=== PATIENT | female | born 1955 | race Caucasian/White ===

== ENCOUNTER 2018-06-25 17:38 | Emergency (ER) | payer MEDICARE, OTHER ==
[2018-06-25 18:39] VITALS: BP 157/102
--- NOTE | 2018-06-25 21:02 | UC ---
Abdominal Pain Female HPI - HPI Summary HPI Summary: 2-3 days of lower abdominal pain. Denies fever, nausea/vomiting. No diarrhea/ constipation. Normal BM today. No urinary symptoms. Appetite is decreased. Patient states she hasn't had much but water over the past 2 days. Currently is pain-free but states it gets worse when she stretches out and lays flat. Patient is morbidly obese and uses a motorized scooter for mobility. - History of Current Complaint Chief Complaint: UCAbdominalPain Stated Complaint: ABDOMINAL PAIN Time Seen by Provider: 06/25/18 19:14 Hx Obtained From: Patient Onset/Duration: Sudden Onset, Lasting Days, Still Present Severity Initially: Moderate Severity Currently: None Pain Intensity: 0 Pain Scale Used: 0-10 Numeric Location: Suprapubic Radiates: No Character: Aching, Sharp Aggravating Factor(s): Other: - LAYING FLAT Alleviating Factor(s): Spontaneous Resolution Associated Signs and Symptoms: Positive: Decreased Appetite. Negative: Diaphoresis, Fever, Constipation, Blood in Stool, Urinary Symptoms, Nausea, Vomiting, Diarrhea Allergies/Adverse Reactions: Allergies Allergy/AdvReac Type Severity Reaction Status Date / Time No Known Allergies Allergy Verified 06/25/18 18:40 Home Medications: Home Medications ?Indomethacin* 1 tab PO DAILY 06/25/18 [History Confirmed 06/25/18] Ibuprofen TAB* [Advil TAB*] 600 mg PO ONCE PRN 06/25/18 [History Confirmed 06/25] PMH/Surg Hx/FS Hx/Imm Hx - Additional Past Medical History Additional PMH: GOUT Cardiovascular History: Hypertension - Surgical History Surgical History: Yes Surgery Procedure, Year, and Place: RIGHT KNEE - CARTILAGE TORN AND REMOVED-2001 -[place]. [id number] - Family History Known Family History: Positive: Non-Contributory - Social History Alcohol Use: None Substance Use Type: None Smoking Status (MU): Never Smoked Tobacco Amount Used/How Often: 1 1/2 PPD X 10 YEARS Have You Smoked in the Last Year: No When Did the Patient Quit Smoking/Using Tobacco: 1982 Review of Systems All Other Systems Reviewed And Are Negative: Yes Constitutional: Positive: Negative Respiratory: Positive: Negative Cardiovascular: Positive: Negative Gastrointestinal: Positive: Abdominal Pain Genitourinary: Positive: Negative Physical Exam Triage Information Reviewed: Yes Appearance: Well-Appearing, No Pain Distress, Well-Nourished, Obese Vital Signs: Initial Vital Signs Temp 97.7 F 06/25/18 18:32 Pulse 80 06/25/18 18:32 Resp 20 06/25/18 18:32 BP 157/102 06/25/18 18:32 Pulse Ox 97 06/25/18 18:32 Laboratory Tests 06/25/18 19:44 POC Urine Color Yellow POC Urine Clarity Clear POC Urine pH 6.0 POC Ur Specif [place] 1.025 POC Urine Protein 1+ A POC Ur Glucose (UA) Negative POC Urine Ketones Trace A POC Urine Blood Negative POC Urine Nitrite Negative POC Urine Bilirubin 1+ A POC Urine Urobilinogen 0.2 POC U Leukocyte Esteras Negative Vital Signs Reviewed: Yes Eyes: Positive: Conjunctiva Clear ENT: Positive: Hearing grossly normal Neck: Positive: Supple Respiratory Exam: Normal Cardiovascular Exam: Normal Abdomen Description: Positive: Soft, Other: - TTP SUPRAPUBIC AREA. NO REBOUND OR RIGIDITY. Negative: CVA Tenderness (R), CVA Tenderness (L), Distended, Guarding Bowel Sounds: Positive: Present Neurological: Positive: Alert Psychological: Positive: Normal Response To Family, Age Appropriate Behavior Skin: Negative: Rashes Abd Pain Female Course/Dx - Course Course Of Treatment: Urine test unremarkable. Discussed transfer to ED for further evaluation of abdominal pain however given that she is currently pain- free and hasn't had any other symptoms of systemic illness she has opted for careful observation at home. She will go to the ED if she develops any worsening pain, fever, vomiting, diarrhea, blood per rectum or any other concerning symptoms. - Differential Dx/Diagnosis Provider Diagnosis: Suprapubic abdominal pain Discharge - Sign-Out/Discharge Documenting (check all that apply): Patient Departure All imaging exams completed and their final reports reviewed: No Studies - Discharge Plan Condition: Stable Disposition: HOME Patient Education Materials: Abdominal Pain (ED) Referrals: Miri Lopes MD [Primary Care Provider] - 1 Week Additional Instructions: ABDOMINAL PAIN: There are many causes of abdominal pain. Pain can mean a serious problem requiring surgery (such as appendicitis), or an innocent problem which goes away on its own (such as a viral infection). Often, time must pass to determine the cause of pain. The physician does not feel that hospitalization is necessary, at present. Conditions may change, however, within the next 24 hours. GO TO THE ER WITHOUT FAIL IF ANY OF THE FOLLOWING OCCUR: 1) Pain which becomes more severe, steady, or becomes concentrated in one specific area. Also, pain which is more severe with movement or coughing. 2) Vomiting which persists or becomes more frequent. 3) Blood in the vomitus, urine, or bowel movements. Blood in the stool may have a tarry or black appearance. 4) Shaking chills or fever greater than 100 degrees F. 5) The abdomen becomes more distended or swollen. 6) Bowel movements cease. 7) Failure to improve as expected. OBSERVATION FOR APPENDICITIS: At this time, the abdominal pain does not seem to be appendicitis. Our next "test" will be passage of time. If you have early appendicitis, signs will appear to help us make the diagnosis. Most of the time, the pain goes away. In these cases, the pain is usually due to a virus in the lymph glands near the appendix, or due to an ovarian cyst or ovulation. Unless the pain is gone, you should come back for a recheck. This is usually done in 8 to 12 hours. Be sure you understand your follow-up instructions. GO TO THE ER IMMEDIATELY IF: (1) the pain becomes much more severe and sharply increases with movement or coughing, (2) vomiting becomes frequent, (3) there is blood in the vomit, urine, or bowel movements, (4) there are shaking chills or fever, or (5) the abdomen becomes more distended or swollen. ENSURE ADEQUATE HYDRATION. CLEAR LIQUIDS, BLAND DIET. AVOID CAFFEINE, DAIRY, GREASY, SPICY FOODS. ONCE YOU ARE TOLERATING CLEAR LIQUIDS YOU CAN ADVANCE TO SIMPLE, BLAND FOODS. - Billing Disposition and Condition Condition: STABLE Disposition: Home
== END 2018-06-25 20:30 | disposition home or self-care (01) ==
LOC: UCEAST 17:38
DX: R10.30 Lower abdominal pain, unspecified (principal); Z87.891 Personal history of nicotine dependence
CPT/HCPCS: 81003; 99211; G0463

== ENCOUNTER 2018-07-03 18:26 | Emergency (ER) | payer MEDICARE, OTHER ==
[2018-07-03] MEDS ORDERED: Ondansetron INJ* 2 MG/ML VIAL IV ONE (20:26)
[2018-07-03] MEDS ORDERED: HYDROmorphone INJ1* 1 MG/ML SYRINGE IV SLOW PU ONE (20:26)
[2018-07-03] MEDS ORDERED: Piperacillin/Tazobac ADVAN(*) 3.375 GM in NS 0.9% 100 ML* 100 ML IVPB ONE (20:26)
--- NOTE | 2018-07-03 20:30 | ED ---
Abdominal Pain/Female - HPI Summary HPI Summary: A 63 y/o female presents to [facility] with a chief complaint of RUQ abd pain since about 06/23/18. She rates her pain as a constant 8/10. She claims that it hurts to lay on her side and that she has a dull pain radiating to her back. She also c/o a lack of appetite and not being able to sleep lately. On 07/02/[address] done with her PCP, Dr. Lopes. At 17:00 07/02/18 Dr. Lopes called the patient, informing the patient that her CT showed gallstones and a gallbladder infection. She instructed the patient to call a surgeon to set up an appointment for 07/05/18, but to go to the ED if she cannot deal with the pain. The patient states that she cannot deal with her pain and so she came to the ED. She denies any bowel movement issues or urinary symptoms. - History of Current Complaint Chief Complaint: EDAbdPain Stated Complaint: ABD PAIN Time Seen by Provider: 07/03/18 20:16 Hx Obtained From: Patient Onset/Duration: Sudden Onset, Lasting Days, Still Present Timing: Constant Severity Initially: Severe Severity Currently: Severe Pain Intensity: 8 Pain Scale Used: 0-10 Numeric Location: Discrete At: RUQ Radiates: Yes Radiates to: Back Character: Sharp Aggravating Factor(s): Nothing Alleviating Factor(s): Nothing Associated Signs and Symptoms: Positive: Back Pain. Negative: Urinary Symptoms Allergies/Adverse Reactions: Allergies Allergy/AdvReac Type Severity Reaction Status Date / Time No Known Allergies Allergy Verified 07/03/18 18:32 PMH/Surg Hx/FS Hx/Imm Hx Endocrine/Hematology History: Denies: Hx Diabetes Cardiovascular History: Reports: Hx Hypertension Denies: Hx Pacemaker/ICD Musculoskeletal History: Reports: Hx Arthritis - KNEES, Hx Bursitis - HIPS Sensory History: Reports: Hx Cataracts - BILATERAL Denies: Hx Contacts or Glasses, Hx Hearing Aid Opthamlomology History: Reports: Hx Cataracts - BILATERAL Denies: Hx Contacts or Glasses Psychiatric History: Denies: Hx Panic Disorder - Cancer History Hx Chemotherapy: No Hx Radiation Therapy: No - Surgical History Surgery Procedure, Year, and Place: RIGHT KNEE - CARTILAGE TORN AND REMOVED-2001 -[facility] [id number] Hx Anesthesia Reactions: No Infectious Disease History: No Infectious Disease History: Denies: Traveled Outside the [place] in Last 30 Days - Family History Known Family History: Positive: Cardiac Disease - father Negative: Hypertension, Diabetes - Social History Alcohol Use: None Substance Use Type: Reports: None Smoking Status (MU): Never Smoked Tobacco Amount Used/How Often: 1 1/2 PPD X 10 YEARS Have You Smoked in the Last Year: No Review of Systems Positive: Abdominal Pain Genitourinary: Negative - urinary symptoms, bowel movement issues Positive: Myalgia - back pain All Other Systems Reviewed And Are Negative: Yes Physical Exam - Summary Physical Exam Summary: Appearance: The patient is mildly obese in no acute distress and in no acute pain. Skin: The skin is warm and dry and skin color reflects adequate perfusion. HEENT: The head is normocephalic and atraumatic. The pupils are equal and reactive. The conjunctivae are clear and without drainage. Nares are patent and without drainage. Mouth reveals moist mucous membranes and the throat is without erythema and exudate. The external ears are intact. The ear canals are patent and without drainage. The tympanic membranes are intact. Neck: The neck is supple with full range of motion and non-tender. There are no carotid bruits. There is no neck vein distension. Respiratory: Chest is non-tender. Lungs are clear to auscultation and breath sounds are symmetrical and equal. Cardiovascular: Heart is regular rate and rhythm. There is no murmur or rub auscultated. There is no peripheral edema and pulses are symmetrical and equal. Abdomen: The abdomen tender RUQ. There are normal bowel sounds heard in all four quadrants and there is no organomegaly palpated. Musculoskeletal: There is no back tenderness noted. Extremities are non-tender with full range of motion. There is good capillary refill. There is no peripheral edema or calf tenderness elicited. Neurological: Patient is alert and oriented to person, place and time. The patient has symmetrical motor strength in all four extremities. Cranial nerves are grossly intact. Deep tendon reflexes are symmetrical and equal in all four extremities. Psychiatric: The patient has an appropriate affect and does not exhibit any anxiety or depression. Triage Information Reviewed: Yes Vital Signs On Initial Exam: Initial Vitals Temp Pulse Resp BP Pulse Ox 98.8 F 87 18 129/81 97 07/03/18 18:29 07/03/18 18:29 07/03/18 18:29 07/03/18 18:29 07/03/18 18:29 Vital Signs Reviewed: Yes Diagnostics - Vital Signs Vital Signs Temp Pulse Resp BP Pulse Ox 07/03/18 18:29 98.8 F 87 18 129/81 97 - Laboratory Result Diagrams: 07/03/18 21:42 07/03/18 21:42 Lab Statement: Any lab studies that have been ordered have been reviewed, and results considered in the medical decision making process. - Ultrasound No standard instances Ultrasound Interpretation Completed By: Radiologist Summary of Ultrasound Findings: Gallbladder US impression: Gallstones without ultrasound evidence of acute cholecystitis. Moderate fatty liver and mild ascites. ED physician has reviewed this imaging report. Abdominal Pain Fem Course/Dx - Course Course Of Treatment: Ms. Ni presented with about a week of abdominal pain getting gradually worse. She saw her PCP yesterday who ordered a CT scan. 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 She was called by the PCP and recommended to come to the emergency department. IV was initiated and she was given Zosyn IV as well as pain medication while an ultrasound of her gallbladder and labs were obtained. While she did have a very slight leukocytosis of 14 with an ANC of 11 her gallbladder ultrasound showed no cholecystitis. She got significant relief of her pain from pain medication here. I have a significant concern that Ms. Jones has cancer and needs close follow-up, however I don't think there is anything that were going to do for her in the hospital today on Thursday therefore I'm going to discharge her with a prescription for pain medication and close follow-up with her PCP. - Diagnoses Provider Diagnoses: Abdominal pain Discharge - Sign-Out/Discharge Documenting (check all that apply): Sign-Out Patient Signing out patient TO: Srinivas Putnam - Discharge Plan Condition: Stable Disposition: HOME Prescriptions: HYDROcodone/ACETAMIN 5-325 MG* [[place] 5-325 TAB*] 1 tab PO Q6H PRN #20 tab MDD 4 PRN Reason: Pain Patient Education Materials: Acute Abdominal Pain (ED) Referrals: Miri Lopes MD [Primary Care Provider] - (This week) Additional Instructions: Follow up with your PCP this week. Return to the ED if you experience any new or worsening symptoms. - Billing Disposition and Condition Condition: STABLE Disposition: Home - Attestation Statements Document Initiated by Scribe: Yes Documenting Scribe: Chris Dupree Provider For Whom Latonyaibamilcar is Documenting (Include Credential): Zeeshan Lozada MD Scribe Attestation: IChris, scribed for Zeeshan Lozada MD on 07/04/18 at 1315. Scribe Documentation Reviewed: Yes Provider Attestation: The documentation as recorded by the Chris donovan accurately reflects the service I personally performed and the decisions made by me, Zeeshan Lozada MD Status of Scribe Document: Viewed
[2018-07-03 21:56] LABS: ABS Basophils 0.1 10^3/ul (0-0.2); ABS Eosinophils 0.1 10^3/ul (0-0.6); ABS Lymphocytes 1.9 10^3/ul (1.0-4.8); ABS Monocytes 0.9 10^3/ul (0-0.8); ABS Neutrophils 11.5 10^3/ul (1.5-7.7); ABS Nucleated RBC 0 10^3/ul; Eosinophil % 0.7 %; Hematocrit 41 % (35-47); Hemoglobin 13.2 g/dl (12.0-16.0); Lymphocyte % 12.9 %; Mean Corpuscular HGB Conc 33 g/dl (31-36); Mean Corpuscular Hemoglobin 27 pg (27-31); Mean Corpuscular Volume 84 fL (80-97); Mean Platelet Volume 8.5 fL (7.4-10.4); Nucleated Red Blood Cells % 0; Platelet Count 383 10^3/ul (150-450); Red Blood Count 4.86 10^6/ul (4.00-5.40); Red Cell Distribution Width 15 % (10.5-15); White Blood Count 14.4 10^3/ul (3.5-10.8)
[2018-07-03 21:59] LABS: INR 1.11 (0.77-1.02)
[2018-07-03 22:05] LABS: EGFR Non-African American 55.7 (>60)
[2018-07-04 00:02] VITALS: BP 107/59
== END 2018-07-04 00:11 | disposition home or self-care (01) ==
LOC: ED 18:26
DX: R10.11 Right upper quadrant pain (principal); I10 Essential (primary) hypertension; Z87.891 Personal history of nicotine dependence; K80.80 Other cholelithiasis without obstruction; K76.0 Fatty (change of) liver, not elsewhere classified; R18.8 Other ascites
CPT/HCPCS: 36415; 76705; 80053; 83605; 83690; 85025; 85610; 86140; 96361; 96374; 96375; 99283; J1170; J2405; J2543

== ENCOUNTER → 2018-07-16 10:24 | Day surgery (SDC) | payer MEDICARE, OTHER ==
[~2018-07-16 10:24] MED LIST: Bacitracin OINTMENT* 0.5% 0.5 oz TUBE ONE; Buffered Lidocaine 0.9% SYRIN* 5 ML/SYR SYRINGE INTRADERM ONE; Bupivacaine 0.25% EPI 200,000* 30 ML SDV ONE; Bupivacaine 0.25% SDV PF* 10 ML VIAL INJ ONE; Dexamethasone IV* 4 MG/ML 1 ML (4 MG) ONE; DiMENhydriNATE IV* 50 MG/ML VIAL IV PUSH PRN; Famotidine IV* 10 MG/ML 2 ML (20 mg) IV ONE; Famotidine IV* 10 MG/ML 2 ML (20 mg) ONE; HYDROmorphone INJ1* 1 MG/ML SYRINGE IV PRN; Lactated Ringers 1000 ML Bag* 1,000 ML IV SCH; Lidocaine 2% PF * 5 ML VIAL ONE; Midazolam* 1 MG/ML 5 ML VIAL (5 MG) ONE; Naloxone* 0.4 MG/ML 1 ML VIAL IV PRN; Ondansetron INJ* 2 MG/ML VIAL ONE; Phenylephrine INJ* 10 MG/ML 1 ML VIAL (10 MG) ONE; Propofol* 10 MG/ML 20 ML BTL ONE; Rocuronium* 10 MG/ML VIAL ONE; Sugammadex * 200 MG/2 ML VIAL IV PUSH ONE; ceFAZolin 1 GM ADVAN(*) 1 GM ADDV.VIAL IVPB ONE; ceFAZolin 2 GM PREMIX in ORs 2 GM/50 ML BAG IVPB ONE; fentaNYL* 50 MCG/ML 2 ML VIAL (100 MCG VIAL) IV PRN; fentaNYL* 50 MCG/ML 2 ML VIAL (100 MCG VIAL) ONE
--- NOTE | 2018-07-16 15:35 | BRIEFOPN ---
Brief Operative Note - Surgery Procedures: Pre-OP Diagnoses: cholelithiasis, abdo pain Post-op Diagnosis: carcinomatosis Procedure: Diagnostic laparoscopy, bx of omentum, liver, peritoneum Surgeon: Noel Asst: Jania Dowell NP Anethesia: ANKUSH Hendricks EBL: minimal IVF: crystalloid Specimen: 1: frozen section omentum 2. omentum studding 3: liver lesion 4. abdo wall studding Drains: none Findings pictures taken frozen: exudative, but not definitive cancer Complications: None
[2018-07-16 16:45] VITALS: BP 139/78
--- NOTE | 2018-07-17 08:23 | OP ---
CC: Dr. Miri Lopes; [facility] OPERATIVE REPORT: DATE OF OPERATION: 07/16/18. DATE OF : 59. SURGEON: Chino Cohen MD [employer]: PRASHANT Dowell. ANESTHESIOLOGIST: Dr. Hendricks. ANESTHESIA: General anesthesia. PRE-OP DIAGNOSES: Cholelithiasis and abdominal pain. POST-OP DIAGNOSIS: Likely rule out carcinomatosis. OPERATIVE PROCEDURE: 1. Diagnostic laparoscopy. 2. Biopsy of omentum. 3. Biopsy of liver. 4. Biopsy of peritoneum. ESTIMATED BLOOD LOSS: Minimal blood loss. FLUIDS: Minimal crystalloid fluid given. SPECIMEN: 1. Frozen section of omentum. 2. Omental studded area. 3. Liver lesion on the right lobe of the liver anteriorly. 4. Anterior abdominal wall studding. 5. Peritoneal fluid for cytology. DRAINS: None. DESCRIPTION OF PROCEDURE: The patient was identified in the preoperative area. Consent was signed. She was marked, taken to the operating room, and placed on the operating room table in a supine posit ion. Preoperative antibiotics were given. Sequential devices were placed on bilateral lower extremit ies. General anesthesia was induced. The patient's abdomen was prepped and draped in the standard s urgical fashion and a time-out was performed. The folds of the umbilicus were elevated anteriorly, there seemed to be some excoriation within the u mbilicus itself, but we knew that it has been prepped and I placed a Veress needle into the abdominal cavity, which was allowed to insufflate to a pressure of 50 mmHg. Approximately 1 L of air insuffla dawood until we reached this pressure. Next, a right upper quadrant incision was made. An Optiview 5 mm was then inserted into the abdomina l cavity and a laparoscope was inserted through this. Review of the abdomen showed omentum attached to the anterior abdominal wall at the umbilicus, this a ppeared studded with fibrinous exudate throughout. The omentum appeared in this manner throughout it s entire course, but was interesting at the site of the umbilicus where we could not identify readily the Veress needle. Additional fluid was identified all throughout the abdomen that was a dark asciti c fluid. Next, a 5-mm trocar was placed in the right lateral most site. We inserted the camera through this a nd now could see the Veress needle which inserted through the omentum. This was then removed. It sh owed no evidence of injury to intestine. Next, we suctioned out the ascites and sent fluid for cytology. We suctioned out over 4 L of this fl uid and this did not appear purulent or cloudy, it was mostly a dark serous fluid. Review of the [facility] er showed that it had multiple studding and lesions as to the anterior abdominal wall along with the omentum. Review of the pelvis showed additional free fluid, which was part of the suctioning. Left and right ovary were identified and pictures taken. We could only see one portion of this. The gallbladder wa s not readily identified, it was behind omentum and omental attachments, and I did not care to lift t his up too much. We took a biopsy of a portion of the omentum at the area of the umbilicus and sent it down as a frozen section. When the pathology returned, it showed inflammatory process with irregu lar , but not fully diagnostic of malignancy. I decided to forego any additional surgery and rather take additional biopsies given the patient's BM I of 61 and these significant intraabdominal findings consistent with a malignancy despite not having a diagnosis. We therefore scissored off the lesion at the right side of the liver and passed it off as specimen. We took additional omentum which showed studding and sent it off as well as a peritone al attachment on the anterior abdominal wall. Once this was done, we allowed the abdomen to collapse . Trocars were removed and there were only 2 of them under direct vision and we placed dressings at the umbilicus as well as the 2 trocar sites after closing the skin with 4-0 Monocryl subcuticular sut ures. Sterile dressing was applied. The patient was woken up and transferred to the PACU in stable c ondition. [id number]/[facility] #: [id number]
--- NOTE | 2018-07-22 18:41 | PN ---
Progress Note - Progress Note Date of Service: 07/22/18 SOAP: Subjective: Spoke to pt. She feels poorly; same as before surgery. Cannot sleep, can only drink Pathology discussed. maegan prescription sent
== END | disposition home or self-care (01) ==
LOC: OR 10:24
PROVIDERS: ATTEND Surgery
DX: C78.7 Secondary malignant neoplasm of liver and intrahepatic bile duct (principal); C78.6 Secondary malignant neoplasm of retroperitoneum and peritoneum; R10.84 Generalized abdominal pain; R18.8 Other ascites; K80.80 Other cholelithiasis without obstruction; I10 Essential (primary) hypertension; Z87.891 Personal history of nicotine dependence; M10.9 Gout, unspecified; M19.90 Unspecified osteoarthritis, unspecified site; Z68.44 Body mass index [BMI] 60.0-69.9, adult
CPT/HCPCS: 87070; 87205; 88112; 88305; 88307; 88313; 88331; 88341; 88342; 88360; A9270-GY; J0690; J1100; J2250; J2405; J2704; J3010; J3490

== ENCOUNTER 2018-07-28 12:46 | Inpatient (IN) | payer MEDICARE, OTHER ==
[2018-07-28] MEDS ORDERED: NS 0.9% 1000 ML*IV.FLUID IV ONE (13:46)
[2018-07-28] MEDS ORDERED: Vancomycin(*) 1,750 MG in NS 0.9% 250 ML* 250 ML IVPB ONE (13:47)
[2018-07-28] MEDS ORDERED: Piperacillin/Tazobac ADVAN(*) 3.375 GM in NS 0.9% 100 ML* 100 ML IVPB ONE (13:47)
[2018-07-28] MEDS ORDERED: fentaNYL* 50 MCG/ML 2 ML VIAL (100 MCG VIAL) IV SLOW PU ONE (13:48)
[2018-07-28] MEDS ORDERED: Ondansetron INJ* 2 MG/ML VIAL IV ONE (13:49)
[2018-07-28 13:59] LABS: ABS Basophils 0.1 10^3/ul (0-0.2); ABS Eosinophils 0.1 10^3/ul (0-0.6); ABS Lymphocytes 1.2 10^3/ul (1.0-4.8); ABS Monocytes 0.7 10^3/ul (0-0.8); ABS Neutrophils 11.4 10^3/ul (1.5-7.7); ABS Nucleated RBC 0 10^3/ul; Eosinophil % 0.7 %; Hematocrit 42 % (35-47); Hemoglobin 13.7 g/dl (12.0-16.0); Lymphocyte % 8.8 %; Mean Corpuscular HGB Conc 33 g/dl (31-36); Mean Corpuscular Hemoglobin 27 pg (27-31); Mean Corpuscular Volume 83 fL (80-97); Mean Platelet Volume 8.7 fL (7.4-10.4); Nucleated Red Blood Cells % 0; Platelet Count 458 10^3/ul (150-450); Red Blood Count 4.99 10^6/ul (4.00-5.40); Red Cell Distribution Width 16 % (10.5-15); White Blood Count 13.5 10^3/ul (3.5-10.8)
--- NOTE | 2018-07-28 14:01 | ED ---
Complex/Multi-Sys Presentation - HPI Summary HPI Summary: This pt is a 63 y/o female presenting to [facility] c/o generalized illness, decreased appetite, fatigue for the past few days. Pt reports she is not eating or drinking. Additionally reports intermittent fever, abd pain, lower back pain , dizziness (this began a couple of days ago), seeing purple "spots." Denies nausea, vomiting, chest pain, SOB, rectal bleeding. Her last bowel movement was yesterday or 2 days ago. Pt reports she had a diagnostic laparoscopy on with Dr. Cohen for cholelithiasis but she states "it ended up being stomach cancer." Per operative report Dr. Cohen sent samples for biopsies including peritoneal fluid for cytology. Pathology report shows final diagnosis of malignant, adenocarcinoma. She denies SI or HI, but states "I do not want to live like this." Pt has not seen an oncologist yet. PMHx: HTN. No hx of CHF, DM, heart disease. Pt did not take any medications before she came to the ED. NKDA. - History Of Current Complaint Chief Complaint: EDGeneral Time Seen by Provider: 07/28/18 13:25 Hx Obtained From: Patient Onset/Duration: Lasting Days, Still Present Timing: Days Severity Currently: Severe Aggravating Factor(s): nothing Alleviating Factor(s): nothing Associated Signs And Symptoms: Positive: Dizziness, Abdominal Pain, Back Pain, Fever - intermittent, Other - POS: decreased appetite, decreased PO intake, fatigue, seeing purple spots. NEG: SI or HI. Negative: SOB, Chest Pain, Nausea , Vomiting - Allergies/Home Medications Allergies/Adverse Reactions: Allergies Allergy/AdvReac Type Severity Reaction Status Date / Time No Known Allergies Allergy Verified 07/28/18 13:48 Home Medications: Home Medications Indomethacin CAP* [Indocin CAP*] 50 mg PO TID WITH MEALS PRN 07/28/18 [History Confirmed 07/28/18] PMH/Surg Hx/FS Hx/Imm Hx Endocrine/Hematology History: Denies: Hx Diabetes Cardiovascular History: Reports: Hx Hypertension Denies: Hx Pacemaker/ICD Musculoskeletal History: Reports: Hx Arthritis - KNEES, Hx Bursitis - HIPS Sensory History: Reports: Hx Cataracts - left eye, Hx Contacts or Glasses - glasses Denies: Hx Hearing Aid Opthamlomology History: Reports: Hx Cataracts - left eye, Hx Contacts or Glasses - glasses Psychiatric History: Denies: Hx Panic Disorder - Cancer History Hx Chemotherapy: No Hx Radiation Therapy: No - Surgical History Surgery Procedure, Year, and Place: RIGHT KNEE - CARTILAGE TORN AND REMOVED-2001 -[place]. right cataract with IOL. C [id number] Hx Anesthesia Reactions: No Infectious Disease History: No Infectious Disease History: Denies: Traveled Outside the [place] in Last 30 Days - Family History Known Family History: Positive: Cardiac Disease - father Negative: Hypertension, Diabetes - Social History Alcohol Use: None Substance Use Type: Reports: None Smoking Status (MU): Former Smoker Amount Used/How Often: 1 1/2 PPD X 10 YEARS Have You Smoked in the Last Year: No Review of Systems Constitutional: Other - POS: decreased appetite, decreased PO intake Positive: Fatigue. Negative: Fever, Chills Eyes: Other - POS: sees purple spots Negative: Chest Pain Negative: Shortness Of Breath Positive: Abdominal Pain. Negative: Vomiting, Nausea, Other - rectal bleeding and passing gas Musculoskeletal: Other - POS: lower back pain Neurological: Other - POS: dizziness Negative: Other - SI or HI All Other Systems Reviewed And Are Negative: Yes Physical Exam - Summary Physical Exam Summary: GENERAL: Patient is a well developed and nourished female who is lying comfortable in the stretcher. Patient is not in any acute respiratory distress. HEAD AND FACE: Normocephalic EYES: PERRLA, EOMI x 2. EARS: Hearing grossly intact. MOUTH: Oropharynx within normal limits. NECK: Supple, trachea is midline, no adenopathy, no JVD, no carotid bruit. CHEST: Symmetric, no tenderness at palpation LUNGS: Clear to auscultation bilaterally. No wheezing or crackles. CVS: Regular rate and rhythm, S1 and S2 present, no murmurs or gallops appreciated. ABDOMEN: Soft, non-tender. Bowel sounds are normal. No abdominal abnormal pulsations. EXTREMITIES: Full ROM in all major joints, no edema, no cyanosis or clubbing. NEURO: Alert and oriented x 3. No acute neurological deficits. Speech is normal and follows commands. SKIN: Dry and warm PSYCH: sad affect, denies any SI or HI Triage Information Reviewed: Yes Vital Signs On Initial Exam: Initial Vitals Temp Pulse Resp BP Pulse Ox 98.0 F 74 22 63/48 96 07/28/18 12:50 07/28/18 12:50 07/28/18 12:50 07/28/18 12:50 07/28/18 12:50 Vital Signs Reviewed: Yes Diagnostics - Vital Signs Vital Signs Temp Pulse Resp BP Pulse Ox 07/28/18 13:38 111 16 67/44 95 07/28/18 13:30 122 15 41/29 95 07/28/18 13:28 121 14 75/59 96 07/28/18 13:24 19 07/28/18 13:19 22 88/57 07/28/18 13:15 121 16 76/56 94 07/28/18 13:12 134 95 07/28/18 12:50 98.0 F 74 22 63/48 96 - Laboratory Result Diagrams: 07/28/18 13:28 07/28/18 13:28 Lab Statement: Any lab studies that have been ordered have been reviewed, and results considered in the medical decision making process. - Radiology Chest XR Radiology Interpretation Completed By: Radiologist Summary of Radiographic Findings: IMPRESSION: Left pleural effusion. Left basilar infiltrate is likely present. Dr. Herbert has reviewed this report. - CT Abdomen/Pelvis CT CT Interpretation Completed By: Radiologist Summary of CT Findings: IMPRESSION: Moderate amount of ascited is noted. Study is extremely limited due to body habitus. Gallstones are noted. Moderate-sized left pleural effusion is noted. Indeterminate positioning of the Booker catheter. Dr. Herbert has reviewed this report. - EKG 13:31 Cardiac Rate: Tachycardia - at 125 bpm EKG Rhythm: Atrial Fibrillation EKG Comparison: Other - No old EKG to compare Summary of EKG Findings: Afib with RVR at 125 bpm. Flipped T waves but it is diffuse. Re-Evaluation - Re-Evaluation First Eval Re-Evaluation Time: 14:37 Comment: Blood pressure is 81/61. Second Eval Re-Evaluation Time: 14:58 Comment: Dr. Porter, intesivist, at bedside currently. Complex Multi-Symp Course/Dx Assessment/Plan: Pt is a 63 y/o female presenting to [facility] c/o generalized illness, decreased appetite, fatigue for the past few days. Additionally abd pain, back pain, dizziness, and seeing purple spots. Pathology report from diagnostic laparascopy (done on 07/16/[address] Cohen) shows final diagnosis of malignant, adenocarcinoma. On arrival, patient found to be hypotensive with Syctolic BP in the 60s. Patient resuscitated with 2 L of IVF and is on the 3rd with repeat BP foung to be in the 80s systolic. Workup remarkable for WBC of 13.5, platelet count of 458, BUN of 77, creatinine of 4.32, lactic acid of 2.1, troponin is 0.04, CRP is 246, BNP is 176. I consulted with Dr. Porter, clinical services assistant, who saw pt in the ED. Discussed the case with Dr. Cohen, surgeon, to make him aware of the pt and he recommended a CT scan, which I have already ordered. Dr. Cohen will follow up on the pt. Dr. Porter accepted the pt for admission to the ICU. I discussed results with patient. The patient agrees with this plan. - Diagnoses Provider Diagnoses: Acute kidney injury, Hypotension, Abdominal pain - Physician Notifications Discussed Care Of Patient With: Mina Porter Time Discussed With Above Provider: 14:49 Instructed by Provider To: Other - I discussed the case with Dr. Porter, clinical services assistant, who will come see the pt in the ED. [14:55] Discussed with Dr. Cohen, surgeon. - Critical Care Time Critical Care Time: 75-104 min Discharge - Sign-Out/Discharge Documenting (check all that apply): Patient Departure - Admit to [facility] All imaging exams completed and their final reports reviewed: Yes - Discharge Plan Condition: Stable Disposition: ADMITTED TO [facility] - Billing Disposition and Condition Condition: STABLE Disposition: Admitted to [facility] - Attestation Statements Document Initiated by Malou: Yes Documenting Scribe: Jenifer Fernandez Provider For Whom Malou is Documenting (Include Credential): Andrews Herbert MD Scribe Attestation: I, Jenifer Fernandez, scribed for Andrews Herbert MD on 07/28/18 at 1823. Scribe Documentation Reviewed: Yes Provider Attestation: The documentation as recorded by the Jenifer donovan accurately reflects the service I personally performed and the decisions made by me, Andrews Herbert MD Status of Scribe Document: Viewed
--- OUTSIDE RECORDS SUMMARY | 2018-07-28 14:06 | XMS REPORT ---
:1955 External Reference #:[id number] Author Organization [facility] Address [address] [place] [address] Phone [phone] Care Team Providers Name Role Phone Miri Lopes Care Team Information Loan Review Analyst Unavailable Miri Lopes Primary Care Physician Unavailable Payers Type Date Identification Numbers Payment Provider Subscriber Medicare Primary Effective: Policy Number: Medicare Orlando Jones 2016 [id number] PayID: [id number] [place] [address] Commercial Effective: 2016 Policy Number: 4 [facility] Umesh Jones [id number] [facility] To [facility] PayID: [id number] [address] [place] [address] Problems Date Description Provider Status Onset: 05/22/2011 Essential hypertension Miri Lopes M.D. Active Onset: 01/01/2012 Overweight Miri Lopes M.D. Active Onset: 12/03/2012 Vitamin D deficiency Miri Lopes M.D. Active Onset: 06/20/2013 Arthralgia of the lower leg Miri Lopes M.D. Active Onset: 12/02/2017 Idiopathic gout, right ankle and Miri Lopes M.D. Active foot Family History Date Family Member(s) Problem(s) Comments General no fam hx lung, colon, breast CA. Father [place] age 65 Mother 84. "Starved herself to get out of the longterm." Cervical and ovarian cancer- all removed in 96. radiation treatment. First Son healthy. [facility]. First Brother estranged. Paternal Grandfather [place] in his 50s Paternal Grandmother age 93 pneumonia Maternal Grandfather prostate cancer age 90 Maternal Grandmother Multiple CVAs, in her late 80s Social History Type Date Description Comments Education Highest level of education completed is an associate degree Marital Status Patient is Living Situation Lives with spouse Diet Diet is healthy and well balanced Sleep Typically sleeps 7 hours a night. Reports normal sleep activity Pets Household pets include 2 cats Occupation retired medical disability. Cigarette Use Former Cigarette Smoker 1 07/28 stopped 1983 Packs Daily ETOH Use Has consumed alcohol in the past Quit 03/2005. Smoking Patient is a former smoker Daily Caffeine Does not consume caffeine Exercise Type/Frequency Current working in the garden. Walks around the house every hour or so. Allergies, Adverse Reactions, Alerts Date Description Reaction Status Severity Comments 01/16/2010 NKDA active Medications Medication Date Status Form Strength Qnty SIG Indications Ordering Provider Vitamin D 02/26 Active Capsules [id number] 12caps take 1 Miri L. (Ergocalciferol) /2017 capsule Marianne, by mouth M.D. once weekly for 12 weeks. Lisinopril-[place] 12/02 Active Tablets 20-25mg 90tabs Take 1 Miri L. chlorothiazide /2018 Tablet By Marianne, Mouth M.D. Every Day Indomethacin 07/28 Active Capsules 50mg 90caps take one M79.671 Miri L. /2017 capsule Marianne, by mouth M.D. three times daily as needed for gout with food in your stomach. Flector 11/21 Active Patches 1.3% 90units one patch M25.551 Miri L. topically Marianne, every 12 M.D. hours. Metoprolol 12/03 Active Tablets 50mg 90tabs 1 by I10 Miri L. Succinate ER /2013 ER 24HR mouth Marianne, every day M.D. Proair HFA 10/08 Active Aerosol 108(90Bas 1units 2 puffs J20.9 Miri L. /2012 e) every 4 Marianne, mcg/Act hours as M.D. needed Lidoderm 07/05 Active Patches 5% 60units use on 726.5 Miri L. painful Marianne, area(s) M.D. for up to 12hours as needed cut in half and put on both hips. Ibuprofen Active Tablets 600mg 90tabs 1 by M25.551 Miri Cota /0000 mouth Marianne, three M.D. times daily with food in your stomach. Lisinopril 08/06 Hx Tablets 20mg 90tabs 1 by Miri Cota /2017 mouth Marianne, - every day M.D. 12/02 Hydrochlorothiaz 08/06 Hx Tablets 25mg 90tabs 1 by Miri Cota marely mouth Marianne, - every day M.D. 12/02 disregard this. will be sending in the combo with deborah slater. Hydrocodone 07/28 Hx Tablets 5-300mg 120tabs 1 -2 by M79.671 Miri Cota Bitartrate/Aceta mouth 4 Marianne, minophen - times M.D. 12/02 Doxycycline 07/22 Hx Capsules 100mg 20caps 1 by L03.115 Miri Cota Hyclate /2016 mouth Marianne, - twice a M.D. Doxycycline 06/29 Hx Capsules 100mg 20caps 1 by L03.115 Afsaneh Hyclate /2016 mouth [place], - twice a Afnp-C Hydroxyzine HCL 01/17 Hx Tablets 25mg 60tabs 1-2 tab L29.8 Alexandra by mouth Joanna, - every 8 SOCIAL SCIENCE MANAGER / hours needed itching Medrol 01/17 Hx Tablets 4mg 1pack dose-pack L29.8 as Joanna, - instructe SOCIAL SCIENCE MANAGER 11/27 d Vitamin D 11/27 Hx Capsules [id number] 12caps take 1 Miri LJacey (Ergocalciferol) /2015 capsule Marianne, - by mouth M.D. 11/27 once weekly for 12 weeks. Vitamin D 02/23 Hx Capsules [id number] 12caps take 1 E55.9 Miri LJacey (Ergocalciferol) /2014 capsule Marianne, - by mouth M.D. 11/26 weekly for 12 weeks. Levofloxacin 01/14 Hx Tablets 500mg 10tabs 1 po qd x 466.0 Savi /2013 10days Stanton, - SOCIAL SCIENCE MANAGER 11/21 Clarithromycin 01/09 Hx Tablets 500mg 20tabs 1 po bid 461.9 Savi ER /2013 ER 24HR Stanton, - SOCIAL SCIENCE MANAGER 11/21 Tussionex 01/09 Hx Liquid ER 10-8mg/5M 120cc 1 tsp 461.9 Savi Pennkinetic /2013 L q12h prn Stanton, Extended Release - cough SOCIAL SCIENCE MANAGER 01/17 Please Draw A 12/19 Hx elevated Miri Beata CBC white Jairon Lopes blood M.DJacey 01/12 cell count. mail to patient's home. Vitamin D 12/19 Hx Capsules [id number] 8caps 1 po Miri Cota /2013 weekly x Jairon Lopes 8. M.DJacey 11/26 Acetaminophen/Co 06/28 Hx Tablets 300-30mg 10tabs 1-2 po at Miri begum #3 /2012 hs. mail Marianne, - [facility]acey [facility] [place] Clarithromycin 06/20 Hx Tablets 500mg 20tabs 1 po bid 461.9 Miri Cota ER /2012 ER 24HR Jairon Lopes M.D. 10/27 Handicap Parking 06/20 Hx permanent M25.561 Miri Cota Sticker /2012 . DX: Jairon Lopes Arthritis M.DJacey 01/17 Lisinopril/[place] 05/10 Hx Tablets 20-25mg 90tabs 1 po qd 401.9 Miri Cota chlorothiazide /2012 Jairon Lopes M.DJacey 10/25 Lisinopril-[place] 05/10 Hx Tablets 20-25mg 90tabs 1 by I10 Philip Maldonado chlorothiazide /2012 mouth Monique, - every day M.D. 08/06 Levofloxacin 10/08 Hx Tablets 500mg 7tabs 1 po qd x 466.0 7 days Thomas - Afnp-C 10/15 Prednisone 10/08 Hx Tablets 10mg 8tabs 2 tabs po 466.0 Angela qd x 2; 1 Thomas, - tabs po x Afnp-C 10/12 2, then 1/2 tab qd x 2 Clarithromycin 10/06 Hx Tablets 500mg 20tabs 1 po bid 466.0 Robert A. /2012 Jairon Rubi M.D. 10/08 Lisinopril/[place] 09/13 Hx Tablets 20-25mg 90tabs 1 po qd Miri Cota chlorothiazide /2012 Jairon Lopes M.D. 06/20 Metoprolol 09/13 Hx Tablets 50mg 90tabs 1 po qd Miri L. Succinate ER /2012 ER 24HR Jairon Lopes M.D. 06/20 Tamiflu 07/12 Hx Capsules 75mg 10caps 1 po bid 079.99 Miri L. /2011 Jairon Lopes M.D. 10/06 Acetaminophen/Co 07/12 Hx Tablets 300-30mg 10tabs 1-2 po at 079.99 Miri floresine #3 hs. Jairon Lopes M.D. 10/06 Hydrocodone/Acet 07/05 Hx Tablets 5-500mg 30tabs 1-2 po 726.5 Miri LJacey aminophen q4-6 Jairon Lopes M.D. 10/06 Lidoderm 07/05 Hx Patches 5% 30units use on 726.5 Miri L. painful Marianne - area(s) M.D. 10/06 for up to 12hours prn Flector 06/23 Hx Patches 1.3% 30units change 719.45 Miri L. [id number] patch Marianne - once M.D. 11/21 every hours Handicap Parking 06/23 Hx temporary 719.45 Angela Permit handicap Thomas, - parking Afnp-C 10/06 permit due to hip pain Amoxicillin/Clav 08/06 Hx Tablets 875-125mg 20tabs 1 po bid 461.9 Miri Beata ulanate Rene Lopes M.D. 10/06 Zithromax 10/30 Hx Tablets 250mg 13tabs 2 po qd x 465.9 Savi /2010 3d , then Stanton, - 1 po qd SOCIAL SCIENCE MANAGER 11/28 times Robitussin A-C 10/30 Hx 120ml 1-2 tsp 465.9 po q4h Stanton, - prn cough SOCIAL SCIENCE MANAGER 11/28 Flector Patch 01/16 Hx Samples 1 q 12h 719.45 on the l Stanton, - hip SOCIAL SCIENCE MANAGER 09/13 Metoprolol 0000 Hx Tablets 50mg 90tabs 1 po qd 401.9 Angela Succinate /0000 ER 24HR Thomas, - Afnp-C 09/13 Amlodipine 00 Hx Tablets 10mg 90tabs 1 by I10 Philip Maldonado Besylate /0000 mouth Justinaimajacobo, - every day M.D. 12/02 Lisinopril-[place] 00/ Hx Tablets 20-25mg 90tabs 1 po qd 401.9 Angela chlorothiazide /0000 Thomas, - Afnp-C 09/13 Hydrocodone-Acet 00 Hx Tablets 2.5-500mg 5tabs 1 po q 6 Unknown aminophen /0000 hours prn - 01/16 [place]-3 Fish Oil 00 Hx Capsules 1000mg 1 po qd Unknown /0000 - 11/27 Vitamin D 00/00 Hx Capsules 1 po qd Unknown /0000 - 12/02 Immunizations CPT Code Status Date Vaccine Lot # [id number] Given 12/03/2012 Tdap Tetanus, W Pertussis [id number] Vital Signs Date Vital Result Comment 06/29/2018 BP Systolic 124 mmHg BP Diastolic 84 mmHg Heart Rate 80 /min Body Temperature 98.5 F Respiratory Rate 16 /min Height 62.5 inches 5'2.50" Weight 350.00 lb BMI (Body Mass Index) 63.0 kg/m2 12/02/2017 BP Systolic 116 mmHg BP Diastolic 62 mmHg Heart Rate 72 /min Body Temperature 98.2 F Respiratory Rate 16 /min Height 62.5 inches 5'2.50" Weight 343.25 lb BMI (Body Mass Index) 61.8 kg/m2 07/28/2017 BP Systolic 130 mmHg BP Diastolic 82 mmHg Heart Rate 84 /min Body Temperature 98.2 F Height 62.5 inches 5'2.50" Weight 354.00 lb stated BMI (Body Mass Index) 63.7 kg/m2 07/22/2017 BP Systolic 130 mmHg BP Diastolic 80 mmHg Heart Rate 72 /min Body Temperature 97.5 F Height 62.5 inches 5'2.50" Weight 354.00 lb stated BMI (Body Mass Index) 63.7 kg/m2 06/29/2017 BP Systolic 130 mmHg BP Diastolic 80 mmHg Heart Rate 60 /min Body Temperature 97.8 F Respiratory Rate 16 /min Height 62.5 inches 5'2.50" Weight 354.38 lb BMI (Body Mass Index) 63.8 kg/m2 04/28/2017 BP Systolic 120 mmHg BP Diastolic 80 mmHg Heart Rate 76 /min Body Temperature 98.6 F Respiratory Rate 18 /min Height 62.5 inches 5'2.50" Weight 348.00 lb BMI (Body Mass Index) 62.6 kg/m2 11/27/2016 BP Systolic 124 mmHg BP Diastolic 72 mmHg Heart Rate 68 /min Body Temperature 97.8 F Respiratory Rate 20 /min Height 62.5 inches 5'2.50" Weight 351.25 lb BMI (Body Mass Index) 63.2 kg/m2 01/18/2016 BP Systolic 136 mmHg BP Diastolic 80 mmHg Heart Rate 68 /min Body Temperature 97.1 F Respiratory Rate 16 /min Height 62.5 inches 5'2.50" Weight 358.00 lb BMI (Body Mass Index) 64.4 kg/m2 11/27/2015 BP Systolic 110 mmHg BP Diastolic 70 mmHg Heart Rate 80 /min Body Temperature 98.2 F Respiratory Rate 18 /min Height 62.5 inches 5'2.50" Weight 362.00 lb BMI (Body Mass Index) 65.1 kg/m2 02/23/2015 BP Systolic 138 mmHg BP Diastolic 84 mmHg Heart Rate 78 /min Body Temperature 98.0 F Respiratory Rate 18 /min Height 62.5 inches 5'2.50" Weight 369.00 lb BMI (Body Mass Index) 66.4 kg/m2 11/21/2014 BP Systolic 138 mmHg BP Diastolic 90 mmHg Heart Rate 76 /min Body Temperature 98.2 F Respiratory Rate 18 /min Height 62.5 inches 5'2.50" Weight 368.00 lb BMI (Body Mass Index) 66.2 kg/m2 01/09/2014 BP Systolic 142 mmHg BP Diastolic 80 mmHg Heart Rate 78 /min Body Temperature 100.0 F Respiratory Rate 22 /min Height 62.5 inches 5'2.50" Weight 355.00 lb BMI (Body Mass Index) 63.9 kg/m2 10/27/2013 BP Systolic 136 mmHg BP Diastolic 84 mmHg Heart Rate 72 /min Body Temperature 98.1 F Respiratory Rate 20 /min Height 62.5 inches 5'2.50" Weight 355.12 lb BMI (Body Mass Index) 63.9 kg/m2 06/20/2013 BP Systolic 140 mmHg BP Diastolic 80 mmHg Heart Rate 72 /min Body Temperature 99.3 F Respiratory Rate 18 /min Height 62.5 inches 5'2.50" Weight 354.38 lb BMI (Body Mass Index) 63.8 kg/m2 12/03/2012 BP Systolic 102 mmHg BP Diastolic 72 mmHg Heart Rate 84 /min Body Temperature 97.6 F Height 62.5 inches 5'2.50" Weight 335.00 lb BMI (Body Mass Index) 60.3 kg/m2 10/22/2012 BP Systolic 140 mmHg BP Diastolic 80 mmHg Heart Rate 72 /min Body Temperature 98.7 F Respiratory Rate 20 /min Height 62.5 inches 5'2.50" Weight 342.00 lb BMI (Body Mass Index) 61.5 kg/m2 10/08/2012 BP Systolic 130 mmHg BP Diastolic 80 mmHg Heart Rate 72 /min Body Temperature 97.7 F O2 % BldC Oximetry 97 % Height 62.5 inches 5'2.50" Weight 347.00 lb BMI (Body Mass Index) 62.4 kg/m2 10/06/2012 BP Systolic 120 mmHg BP Diastolic 70 mmHg Heart Rate 72 /min Body Temperature 98.2 F Respiratory Rate 20 /min O2 % BldC Oximetry 98 % Height 62.5 inches 5'2.50" Weight 347.00 lb BMI (Body Mass Index) 62.4 kg/m2 07/12/2012 BP Systolic 144 mmHg BP Diastolic 70 mmHg Heart Rate 78 /min Body Temperature 97.8 F Height 62.5 inches 5'2.50" Weight 350.00 lb BMI (Body Mass Index) 63.0 kg/m2 07/05/2012 Heart Rate 78 /min Body Temperature 98.2 F Height 62.5 inches 5'2.50" Weight 350.00 lb BMI (Body Mass Index) 63.0 kg/m2 06/23/2012 BP Systolic 130 mmHg BP Diastolic 80 mmHg Heart Rate 72 /min Body Temperature 97.8 F Height 62.5 inches 5'2.50" Weight 350.00 lb BMI (Body Mass Index) 63.0 kg/m2 01/01/2012 BP Systolic 120 mmHg BP Diastolic 90 mmHg Heart Rate 68 /min Body Temperature 98.4 F Height 62.5 inches 5'2.50" Weight 35.00 lb BMI (Body Mass Index) 6.3 kg/m2 08/06/2011 BP Systolic 120 mmHg BP Diastolic 80 mmHg Heart Rate 80 /min Body Temperature 98.7 F Height 62.5 inches 5'2.50" Weight 346.00 lb BMI (Body Mass Index) 62.3 kg/m2 05/22/2011 BP Systolic 110 mmHg BP Diastolic 80 mmHg Heart Rate 68 /min Body Temperature 98.0 F Height 62.5 inches 5'2.50" Weight 346.00 lb BMI (Body Mass Index) 62.3 kg/m2 11/28/2010 BP Systolic 120 mmHg BP Diastolic 88 mmHg Heart Rate 100 /min Body Temperature 98.4 F Height 62.5 inches 5'2.50" Weight 338.00 lb BMI (Body Mass Index) 60.8 kg/m2 10/30/2010 BP Systolic 140 mmHg BP Diastolic 84 mmHg Heart Rate 68 /min Body Temperature 98.0 F Respiratory Rate 16 /min Height 63 inches 5'3" Weight 341.00 lb BMI (Body Mass Index) 60.4 kg/m2 09/13/2010 BP Systolic 148 mmHg BP Diastolic 84 mmHg Heart Rate 78 /min Body Temperature 98.3 F Height 63 inches 5'3" Weight 344.00 lb BMI (Body Mass Index) 60.9 kg/m2 01/16/2010 BP Systolic 142 mmHg BP Diastolic 92 mmHg Heart Rate 84 /min Body Temperature 98.5 F Respiratory Rate 18 /min Height 63 inches 5'3" Weight 344.00 lb BMI (Body Mass Index) 60.9 kg/m2 Results Test Date Test Result H/L Range Note Poc Urinalysis 06/25/2018 Poc Glucose, Urine Negative Negative Poc Bilirubin, Urine 1+ Negative Poc Ketone, Urine Trace Negative Poc Specific Chemult, Urine 1.025 1.010-1.030 Poc Blood, Urine Negative Negative Poc pH, Urine 6.0 5-9 Poc Protein, Urine 1+ Negative Poc Urobilinogen, Urine 0.2 Negative Poc Nitrite, Urine Negative Negative Poc Leukocytes, Urine Negative Negative Poc Color, Urine Yellow Poc Clarity, Urine Clear 1 Laboratory test finding 12/02/2017 Vitamin D25 16 Low 30-100 Comprehensive Metabolic Prof 12/02/2017 Sodium 137 mEq/L 134-149 Potassium 3.9 mEq/L 3.6-5.5 Chloride 101 mEq/L 94-112 Carbon Dioxide 26 mEq/L 21-32 Glucose 120 mg/dL High 70-105 2 BUN 18 mg/dL 6-26 Creatinine 0.8 mg/dL 0.6-1.4 BUN/Creat Ratio 22.5 CALC 8.0-36.0 Calcium 9.7 mg/dL 8.6-10.2 Total Protein 7.3 g/dL 6.4-8.3 Albumin 4.4 g/dL 3.8-5.5 Globulin 2.9 g/dL 2.0-4.8 A/G Ratio 1.5 CALC 0.6-2.3 Alk. Phosphatase 87 U/L 30-110 Alt (SGPT) 25 U/L 7-35 Ast (Sgot) 22 U/L 5-34 Total Bilirubin 0.2 mg/dL 0.2-1.3 GFR Non- >60 ml/min/1.73m^ >=60 GFR >60 ml/min/1.73m^ >=60 Lipid Profile 12/02/2017 Cholesterol 192 mg/dL 120-200 Triglycerides 172 mg/dL 30-200 HDL Cholesterol 41 mg/dL 30-85 LDL (Calculated) 117 CALC 0-129 VLDL Cholesterol 34 mg/dL 0-50 HDL Risk Factor 4.7 CALC High 0.0-4.4 Laboratory test finding 12/02/2017 TSH 4.10 mIU/L 0.50-6.00 CBC Electronic Fma 12/02/2017 WBC 10.0 x10^3/UL 4.0-10.0 RBC 5.30 x10^6/UL 3.93-6.00 HGB 14.1 g/dL 12.0-17.0 HCT 44 % 35-50 MCV 82.3 fL 80.0-95.0 MCH 26.6 pg 25.6-32.2 MCHC 32.3 g/dL 32.2-36.0 RDW-CV 14.8 % High 11.6-14.4 PLT 309 x10^3/UL 163-400 MPV 11.1 fL 9.4-12.4 Puneet# 6.15 x10^3/UL High 1.56-6.13 Lymph# 2.59 x10^3/UL 1.18-3.74 Garrard# 0.62 x10^3/UL 0.24-0.82 Eos # 0.4 x10^3/UL 0.0-0.5 Baso # 0.08 x10^3/UL 0.01-0.08 Puneet% 63.0 % 34.0-70.0 Lymph % 25.9 % 20.0-52.0 Garrard% 6.2 % 5.0-12.0 Eos% 3.9 % 0.7-7.0 Baso% 0.8 % 0.1-1.2 Laboratory test finding 07/28/2017 Uric Acid 9.4 mg/dL High 2.5-9.2 3 Complete Blood Count 07/28/2017 WBC 12.4 x10^3/UL High 3.6-9.6 4 RBC 4.83 x10^6/UL 3.90-5.70 HGB 13.3 g/dL 12.1-17.2 HCT 41 % 36-50 MCV 85.0 fL 82.2-97.4 MCH 27.5 pg Low 27.6-33.3 MCHC 32.5 g/dL Low 33.0-35.5 RDW 14.9 % High 11.6-13.7 PLT 288 x10^3/UL 150-400 MPV 8.2 fL 7.4-10.4 Gran # 10.0 x10^3/UL High 1.5-7.2 Lymph# 2.0 x10^3/UL 0.7-4.9 Garrard# 0.4 x10^3/UL 0.1-0.9 Gran % 79.6 % High 42.2-75.2 Lymph % 16.5 % Low 20.5-51.1 Garrard% 3.9 % 1.7-9.3 Comprehensive Metabolic Prof 07/28/2017 Sodium 140 mEq/L 134-149 Potassium 3.7 mEq/L 3.6-5.5 Chloride 103 mEq/L 94-112 Carbon Dioxide 32 mEq/L 21-32 Glucose 128 mg/dL High 70-105 5 BUN 14 mg/dL 6-26 Creatinine 0.8 mg/dL 0.6-1.4 BUN/Creat Ratio 17.5 CALC 8.0-36.0 Calcium 9.8 mg/dL 8.6-10.2 Total Protein 7.2 g/dL 6.4-8.3 Albumin 4.2 g/dL 3.8-5.5 Globulin 3.0 g/dL 2.0-4.8 A/G Ratio 1.4 CALC 0.6-2.3 Alk. Phosphatase 72 U/L 30-110 Alt (SGPT) 15 U/L 7-35 Ast (Sgot) 14 U/L 5-34 Total Bilirubin 0.5 mg/dL 0.2-1.3 GFR Non- >60 ml/min/1.73m^ >=60 GFR >60 ml/min/1.73m^ >=60 Laboratory test finding 07/28/2017 Hemoglobin A1c (Fma) 5.9 % High 4.1- 5.7 Sedimentation Rate 51 Ua - Micro (Fma) 04/28/2017 Appearance clear Color yellow Glucose, Urine (Fma/CMC/CTX) negative Bilirubin negative Ketones negative SP Grav 1.010 Blood negative PH 6.0 Protein negative Urobil 0.2 Nitrite negative Leukocytes (Fma/CMC/Centrex) negative Hyaline - /Lpf Granular - /Lpf WBC (Fma,Centrex) no RBC micro done Complete Blood Count 11/27/2016 WBC 10.1 x10^3/UL High 3.6-9.6 RBC 5.42 x10^6/UL 3.90-5.70 HGB 15.0 g/dL 12.1-17.2 HCT 46 % 36-50 MCV 85.0 fL 82.2-97.4 MCH 27.6 pg 27.6-33.3 MCHC 33.0 g/dL 33.0-35.5 RDW 14.8 % High 11.6-13.7 PLT 315 x10^3/UL 150-400 MPV 7.7 fL 7.4-10.4 Gran # 6.9 x10^3/UL 1.5-7.2 Lymph# 2.7 x10^3/UL 0.7-4.9 Garrard# 0.5 x10^3/UL 0.1-0.9 Gran % 67.4 % 42.2-75.2 Lymph % 27.3 % 20.5-51.1 Garrard% 5.3 % 1.7-9.3 Comprehensive Metabolic Prof 11/27/2016 Sodium 139 mEq/L 134-149 Potassium 4.2 mEq/L 3.6-5.5 Chloride 100 mEq/L 94-112 Carbon Dioxide 27 mEq/L 21-32 Glucose 118 mg/dL High 70-105 BUN 13 mg/dL 6-26 Creatinine 0.8 mg/dL 0.6-1.4 BUN/Creat Ratio 16.3 CALC 8.0-36.0 Calcium 10.2 mg/dL 8.6-10.2 Total Protein 8.0 g/dL 6.4-8.3 Albumin 4.4 g/dL 3.8-5.5 Globulin 3.6 g/dL 2.0-4.8 A/G Ratio 1.2 CALC 0.6-2.3 Alk. Phosphatase 80 U/L 30-110 Alt (SGPT) 23 U/L 7-35 Ast (Sgot) 24 U/L 5-34 Total Bilirubin 0.4 mg/dL 0.2-1.3 GFR Non- >60 ml/min/1.73m^ >=60 GFR >60 ml/min/1.73m^ >=60 Lipid Profile 11/27/2016 Cholesterol 206 mg/dL High 120-200 Triglycerides 200 mg/dL 30-200 HDL Cholesterol 43 mg/dL 30-85 LDL (Calculated) 123 CALC 0-129 VLDL Cholesterol 40 mg/dL 0-50 HDL Risk Factor 4.8 CALC High 0.0-4.4 Laboratory test finding 11/27/2016 TSH 2.77 mIU/L 0.50-6.00 Free T4 1.23 ng/dL 0.75-1.54 Laboratory test finding 11/27/2015 Vitamin D25 28 Low 30-100 Comprehensive Metabolic Prof 11/27/2015 Sodium 142 mEq/L 134-149 Potassium 4.2 mEq/L 3.6-5.5 Chloride 102 mEq/L 94-112 Carbon Dioxide 29 mEq/L 21-32 Glucose 103 mg/dL 70-105 BUN 14 mg/dL 6-26 Creatinine 0.8 mg/dL 0.6-1.4 BUN/Creat Ratio 17.5 CALC 8.0-36.0 Calcium 9.5 mg/dL 8.6-10.2 Total Protein 7.5 g/dL 6.4-8.3 Albumin 4.1 g/dL 3.8-5.5 Globulin 3.4 g/dL 2.0-4.8 A/G Ratio 1.2 CALC 0.6-2.3 Alk. Phosphatase 74 U/L 30-110 Alt (SGPT) 32 U/L 7-35 Ast (Sgot) 32 U/L 5-34 Total Bilirubin 0.4 mg/dL 0.2-1.3 GFR Non- >60 ml/min/1.73m^ >=60 GFR >60 ml/min/1.73m^ >=60 Lipid Profile 11/27/2015 Cholesterol 194 mg/dL 120-200 Triglycerides 151 mg/dL 30-200 HDL Cholesterol 36 mg/dL 30-85 LDL (Calculated) 128 CALC 0-129 VLDL Cholesterol 30 mg/dL 0-50 HDL Risk Factor 5.4 CALC High 0.0-4.4 Laboratory test finding 11/27/2015 Free T4 1.54 ng/dL 0.75-1.54 TSH 2.55 mIU/L 0.50-6.00 Complete Blood Count 11/27/2015 WBC 10.1 x10^3/UL High 3.6-9.6 6 RBC 5.06 x10^6/UL 3.90-5.70 HGB 14.2 g/dL 12.1-17.2 HCT 44 % 36-50 MCV 87.0 fL 82.2-97.4 MCH 28.1 pg 27.6-33.3 MCHC 32.4 g/dL Low 33.0-35.5 RDW 14.7 % High 11.6-13.7 PLT 282 x10^3/UL 150-400 MPV 8.4 fL 7.4-10.4 Gran # 6.9 x10^3/UL 1.5-7.2 Lymph# 2.8 x10^3/UL 0.7-4.9 Garrard# 0.4 x10^3/UL 0.1-0.9 Gran % 66.8 % 42.2-75.2 Lymph % 28.4 % 20.5-51.1 Garrard% 4.8 % 1.7-9.3 Laboratory test finding 11/21/2014 Vitamin D25 21 Low 30-100 Complete Blood Count 11/21/2014 WBC 9.3 x10^3/UL 3.6-9.6 RBC 5.10 x10^6/UL 3.90-5.70 HGB 14.6 g/dL 12.1-17.2 HCT 44 % 36-50 MCV 86.0 fL 82.2-97.4 MCH 28.6 pg 27.6-33.3 MCHC 33.4 g/dL 33.0-35.5 RDW 15.1 % High 11.6-13.7 PLT 257 x10^3/UL 150-400 MPV 7.6 fL 7.4-10.4 Gran # 5.6 x10^3/UL 1.5-7.2 Lymph# 3.2 x10^3/UL 0.7-4.9 Garrard# 0.5 x10^3/UL 0.1-0.9 Gran % 60.0 % 42.2-75.2 Lymph % 34.4 % 20.5-51.1 Garrard% 5.6 % 1.7-9.3 Comprehensive Metabolic Prof 11/21/2014 Sodium 138 mEq/L 134-149 Potassium 3.9 mEq/L 3.6-5.5 Chloride 98 mEq/L 94-112 Carbon Dioxide 25 mEq/L 21-32 Glucose 105 mg/dL 70-105 BUN 15 mg/dL 6-26 Creatinine 0.9 mg/dL 0.6-1.4 BUN/Creat Ratio 16.7 CALC 8.0-36.0 Calcium 9.9 mg/dL 8.6-10.2 Total Protein 7.5 g/dL 6.4-8.3 Albumin 4.3 g/dL 3.8-5.5 Globulin 3.2 g/dL 2.0-4.8 A/G Ratio 1.3 CALC 0.6-2.3 Alk. Phosphatase 81 U/L 30-110 Alt (SGPT) 46 U/L High 7-35 7 Ast (Sgot) 44 U/L High 5-34 8 Total Bilirubin 0.5 mg/dL 0.2-1.3 Ua - Non Micro (Fma) 11/21/2014 Appearance CLEAR Color YELLOW Glucose, Urine (Fma/CMC/CTX) NEG Bilirubin NEG Ketones NEG SP Grav 1.005 Blood NEG PH 6.5 Protein NEG Urobil 0.2 Nitrite NEG Leukocytes (Fma/CMC/Centrex) NEG Complete Blood Count 10/27/2013 WBC 10.5 x10^3/UL High 3.6-9.6 9 RBC 4.68 x10^6/UL 3.90-5.70 HGB 12.9 g/dL 12.1-17.2 HCT 40 % 36-50 MCV 84.0 fL 82.2-97.4 MCH 27.5 pg Low 27.6-33.3 10 MCHC 32.6 g/dL Low 33.0-35.5 11 RDW 13.3 % 11.6-13.7 PLT 273 x10^3/UL 150-400 MPV 7.8 fL 7.4-10.4 Gran # 6.8 x10^3/UL 1.5-7.2 Lymph# 3.3 x10^3/UL 0.7-4.9 Garrard# 0.4 x10^3/UL 0.1-0.9 Gran % 64.1 % 42.2-75.2 Lymph % 31.5 % 20.5-51.1 Garrard% 4.4 % 1.7-9.3 Comprehensive Metabolic Prof 10/27/2013 Sodium 142 mEq/L 134-149 Potassium 4.2 mEq/L 3.6-5.5 Chloride 100 mEq/L 94-112 Carbon Dioxide 27 mEq/L 21-32 Glucose 101 mg/dL 70-105 BUN 16 mg/dL 6-26 Creatinine 0.9 mg/dL 0.6-1.4 BUN/Creat Ratio 17.8 CALC 8.0-36.0 Calcium 9.9 mg/dL 8.6-10.2 Total Protein 7.7 g/dL 6.3-8.1 Albumin 4.6 g/dL 3.8-5.5 Globulin 3.1 g/dL 2.0-4.8 A/G Ratio 1.5 CALC 0.6-2.3 Alk. Phosphatase 90 U/L 30-110 Alt (SGPT) 25 U/L 7-35 Ast (Sgot) 23 U/L 5-34 Total Bilirubin 0.5 mg/dL 0.2-1.3 Lipid Profile 10/27/2013 Cholesterol 205 mg/dL High 120-200 Triglycerides 153 mg/dL 30-200 HDL Cholesterol 36 mg/dL 30-85 LDL (Calculated) 138 CALC High 0-129 VLDL Cholesterol 31 mg/dL 0-50 HDL Risk Factor 5.7 CALC High 0.0-4.4 Laboratory test finding 10/27/2013 Vitamin D25 22 Low 30-100 12 TSH 1.92 mIU/L 0.50-6.00 Ua - Non Micro ([facility]) 10/27/2013 Appearance CLEAR Color YELLOW Glucose NEG Bilirubin NEG Ketones NEG SP Grav <=1.005 Blood NEG PH 7.0 Protein NEG Urobil 0.2 Nitrite NEG Leukocytes (a/[facility] [place]/[facility]) NEG HPV High Risk 10/27/2013 Human Papillomavirus Source See Comment 13 HPV High Risk Type 16, PCR Negative Negative HPV High Risk Type 18, PCR Negative Negative HPV Other Risk types Negative Negative 14 Laboratory test 10/27/2013 Cytology RUN DATE: finding <SEE NOTE> Laboratory test 10/27/2013 Hemoglobin A1c 6.1 % High 4.1-5.7 finding (a/[facility] [place],CX) Basic Metabolic 05/22/2011 BUN 17 mg/dL 6-26 Profile Calcium 10.2 mg/dL 8.6-10.2 Chloride 103 mEq/L 94-112 Creatinine 0.9 mg/dL 0.6-1.4 Carbon Dioxide 27 mEq/L 21-32 Glucose 112 mg/dL High 70-105 16 Sodium 140 mEq/L 134-149 Potassium 3.6 mEq/L 3.6-5.5 BUN/Creat Ratio 18.6 Calc 8.0-36.0 Laboratory test finding 05/22/2011 Vitamin D, 25 Oh 15.0 ng/mL Low 32.0- 100.0 17, 18 PTH Intact W/Calcim (CX) 05/22/2011 Calcium 9.7 mg/dL 8.4-10.4 17 Intact PTH 46.2 pg/mL 10.0-73.0 17 Calcium 9.7 mg/dL 8.4-10.4 17 CBC Electronic ([facility]) 11/21/2010 WBC 9.4 3.6-9.6 RBC 5.13 3.90-5.70 Hemoglobin (Fma/CMC/CTX) 14.2 g/dL 12.1 - 17.2 Hematocrit (Fma/CMC/CTX) 43.2 % 36.1 - 50.3 Platelets 261 10^3/ul 150-400 Lymph% 30.2 20.5-51.1 Mixed% 7.2 Neutrophils % 62.6 Mean Corpuscular Vol 84 82.2-97.4 Mean Corpuscular Hemoglobin 27.7 27.6-33.3 Mean Corpuscular Hemo Concen 33.0 32.0-36.0 RDW 13.1 11.6-13.7 Mean Platelet Volume 8.4 6.5-11.0 Comprehensive Metabolic Prof 11/21/2010 Albumin 4.4 g/dL 3.8-5.5 Alk. Phos. 89 U/L 30-110 Alt (SGPT) 21 U/L 7-35 Ast (Sgot) 20 U/L 5-34 BUN 19 mg/dL 6-26 Calcium 10.8 mg/dL High 8.6-10.2 19 Chloride 99 mEq/L 94-112 Creatinine 0.9 mg/dL 0.6-1.4 Carbon Dioxide 23 mEq/L 21-32 Glucose 102 mg/dL 70-105 Sodium 143 mEq/L 134-149 Total Bilirubin 0.4 mg/dL 0.2-1.3 Total Protein 7.4 g/dL 6.3-8.1 Potassium 4.1 mEq/L 3.6-5.5 Globulin 3.0 g/dL 2.0-4.8 A/G Ratio 1.5 Calc 0.6-2.2 BUN/Creat Ratio 21.3 Calc 8.0-36.0 Laboratory test finding 11/21/2010 TSH 3.08 mIU/L 0.50-6.00 Lipid Profile 11/21/2010 Cholesterol 213 mg/dL High 120-200 HDL 36 mg/dL 30-85 Triglycerides 172 mg/dL 30-200 HDL Risk Factor 6.0 CALC High 0.0-4.0 LDL (Calculated) 143 CALC High 0-129 VLDL (Calculated) 34 mg/dL 0-50 1 Laser Beam Machine Operator: [id number] consistent w/ previous results 3 RESULTS VERIFIED BY REPEAT ANALYSIS 4 RESULTS VERIFIED BY REPEAT ANALYSIS 5 RESULTS VERIFIED BY REPEAT ANALYSIS 6 RESULTS VERIFIED BY REPEAT ANALYSIS 7 RESULTS VERIFIED BY REPEAT ANALYSIS 8 RESULTS VERIFIED BY REPEAT ANALYSIS 9 RESULTS VERIFIED BY REPEAT ANALYSIS 10 RESULTS VERIFIED BY REPEAT ANALYSIS 11 RESULTS VERIFIED BY REPEAT ANALYSIS 12 FASTING 13 RESULT: Ectocervical/Endocervical 14 The following Other High Risk HPV types were not detected: 31, 33, 35, 39, 45, 51, 52, 56, 58, 59, 66, and 68 Test Performed by: [facility] - [address] [address] Seam Checker: Indio Eric III, M.D. 15 RUN DATE: 10/28/13 [facility] LIVE PAGE 1 RUN TIME: [address] [place] [address] Specimen Inquiry Name: ARLIN JONES : [address]: Miri Lopes MD Acct: [id number] Unit: [id number] AGE: 58 Location: [facility] Re10/27/13 SEX: F Status: REG REF SPEC: [id number] JAGDISH: 10/27/13-1507 [facility] DR: Miri Lopes MD REQ: [id number] RECD: 10/27/13 STATUS: SOUT _ ORDERED: IMAGE ANALYSIS, HPV/Thin Prep FINAL DIAGNOSIS Negative for Intraepithelial lesion or Malignancy COMMENTS: Specimen sent to [facility] in [place], [place] on 10/28/13 by [id number] at 1154. Results will be reported separately. A. Ectocervical/Endocervical Specimen Adequacy: Satisfactory of evaluation Transformation zone component not identified Patient Information: HPV: High risk HPV DNA testing regardless of pap results. Actual Specimen Date: 10/27/13 Post Menopausal?: Y Hysterectomy?: N Previous Abnormal Pap Smears?:N Signed (signature on file) DIANA Newby (ASCP) 10/28 1458 This Pap test was evaluated with the assistance of the [employer] Test Imaging System. Due to cytologic findings at the chemical lab technician microscope, comprehensive manual rescreening by a Audit Officer may be required. The Pap Smear is a screening test designed to aid in the detection of premalignant and malignant conditions of the uterine cervix. It is not a diagnostic procedure and should not be used as the sole means of detecting cervical cancer. Both false- positive and false- negative reports do occur. Depending on your risk status, a Pap smear shoudl be obtained and evaluated every 1-3 years. END OF REPORT * ML=Testing performed at Main Lab DEPARTMENT OF PATHOLOGY, [address] [place] [address] Ian Hung M.D. Director [facility] Permit #[id number] RESULT LUIS'D 17 ; Effective June 16, 2011 Vitamin D, 25-Hydroxy reference intervals will be changing to 30-100. . Recent studies consider the lower limit of 32.0 ng/mL to be a threshold for optimal health. Joseph BW. J Nutr. 2004;135(2):317-22. 19 RESULT LUIS'D Procedures Date CPT Code Description Status Comment 12/03/2012 Mammogram Completed 11/30/2012 Mammogram Completed all normal in the past. chooses not to do mammos - 10/2016 refusing mammogram 12/11. 10/22/2012 10882 Electrocardiogram Complete Completed 10/08/2012 48031 Pulse Oximetry Completed 10/08/2012 11514 Nebulizer Treatment Completed 10/06/2012 38204 Pulse Oximetry Completed Encounters Type Date Location Provider CPT E/M Dx Office Visit 12/02/2017 9:00a Main Office Miri Lopes M.D. 92284 Z00.01 Z12.31 E66.01 I10 E55.9 M10.071 Z12.11 Office Visit 07/28/2017 11:20a Main Office Miri Lopes M.D. 05242 R73.01 M79.671 M79.672 Office Visit 07/22/2017 3:40p Main Office Miri Lopes M.D. 24018 M79.672 Office Visit 06/29/2017 2:00p [facility] Afsaneh Slade, 36326 L03.115 Afnp-C Office Visit 04/28/2017 11:00a [facility] Office Philip Amaya M.D. 42813 M54.5 Office Visit 11/27/2016 9:00a [facility] Office Miri Lopes M.D. 88742 Z00.00 E66.3 I10 Office Visit 01/18/2016 10:45a [facility] Office Alexandra Marshall, [facility] 10902 L29.8 R21 Office Visit 11/27/2015 10:00a [facility] Office Miri Lopes M.D. 22961 Z00.00 I10 E66.01 M25.561 E55.9 Z12.31 Office Visit 02/23/2015 9:40a Main Office Miri Lopes M.D. 42548 366.8 V72.83 268.9 278.02 Office Visit 11/21/2014 9:00a [facility] Office Miri Lopes M.D. 41262 V70.0 401.9 278.01 719.46 268.9 Office Visit 01/09/2014 1:30p [facility] Office Savi Eid, [facility] 85472 461.9 Office Visit 10/27/2013 1:40p [facility] Office Miri Lopes M.D. 62578 V70.0 V72.31 401.9 719.46 278.02 268.9 Office Visit 06/20/2013 6:30p Main Office Miri Lopes M.D. 93727 719.46 461.9 Office Visit 12/03/2012 1:00p [facility] Miri Lopes M.D. 77939 V70.0 278.02 401.9 268.9 v06.5 Office Visit 10/22/2012 3:40p [facility] Office Miri Lopes M.D. 58055 278.02 401.9 Office Visit 10/08/2012 10:15a [facility] Angela GuzmanKeyur 70196 466.0 Office Visit 10/06/2012 10:40a [facility] Robert Rubi M.D. 06615 466.0 Office Visit 07/12/2012 8:10p Main Office Miri Lopes M.D. 48144 079.99 Office Visit 07/05/2012 7:00p Main Office Miri Lopes M.D. 50508 726.5 Office Visit 06/23/2012 11:30a [facility] Office Angela GuzmanHenry-C 69521 719.45 401.9 Office Visit 01/01/2012 1:40p [facility] Office Miri Lopes M.D. 36004 401.9 278.02 Office Visit 08/06/2011 3:15p [facility] Office NEEL Unger 29448 461.9 Office Visit 05/22/2011 2:40p [facility] Office Miri Lopes M.D. 90619 401.9 275.42 268.9 V70.0 Office Visit 11/28/2010 1:00p [facility] Office Miri Lopes M.D. 09641 V70.0 401.9 275.42 Office Visit 10/30/2010 1:45p [facility] NEEL Unger 31176 465.9 Office Visit 09/13/2010 1:00p [facility] Office Miri Lopes M.D. 37344 401.1 V70.0 Office Visit 01/16/2010 1:30p [facility] Office NEEL Unger 62964 401.9 719.45 Plan of Care 06/29/2018 - Miri Lopes M.D.R10.31 Right lower quadrant painNew Labs: CBC W/DiffCCS-Comp Metabolic ([facility])TSH 3G#Allergy, CarrotNew Xrays:CT Abdomen & amp; Pelvis W/ContrastUltrasound Transvaginal Non-OBComments:most likely something with your appendix or your ovary.AllComments:~B_~U_Medication Management~b_~u_ Patient Understands medications she's taking? Yes No Are there Barriers to Adherence? Yes No Has the patient been asked about herbal supplements and therapies, and OTC meds? Yes No
--- OUTSIDE RECORDS SUMMARY | 2018-07-28 14:06 | XMS REPORT | Continuity of Care Document ---
:1955 External Reference #:[id number] Author Name Alexandra Bradford Care Team Providers Name Role Phone Miri Lopes MD Primary Care Physician Unavailable Payers Type Date Identification Numbers Payment Provider Subscriber Policy Number: [id number] Medicare Arlin Jones PayID: [id number] [address] [place] [address] Effective: 2012 Policy Number: [id number] [employer] Arlin Jones Expires: 2013 Group Name: Expires 13 [address] PayID: [id number] JESENIA Monson [id number] Policy Number: [id number] [facility] U[facility] PayID: [id number] [address] [place] [address] Expires: 2008 Policy Number: [id number] [facility] Arlin Jones PayID: [id number] [address] [place] [address] Effective: 2005 Policy Number: [id number] BS Of DEVNE Jones Expires: 2012 Group Number: [id number] [address] Group Name: [id number] JESENIA Monson [id number] PayID: [id number] Advance Directives Description No Information Available Problems Description No Information Family History Date Family Member(s) Problem(s) Comments : (age 65 Years) Father due to OR Mother Cervical Cancer Mother Ovarian Cancer Social History Type Date Description Comments Sex Unknown Marital Status Occupation Disabled ETOH Use Denies alcohol use Tobacco Use Start: Unknown End: Patient is a former smoker Unknown Tobacco Use Start: Unknown quit 33 years ago Smoking Status Reviewed: 07/08/18 quit 33 years ago Exercise Type/Frequency Does not exercise Allergies, Adverse Reactions, Alerts Description No Known Drug Allergies Medications Medication Date Status Form Strength Qnty SIG Indications Ordering Provider Percocet 07/08/ Active Tablets 5-325mg 20tabs 1 tablet by K80.80 Chino King 2018 mouth every Bollo, 4 hours as , FACS needed pain Metoprolol / Active Tablets ER 50mg 1 by mouth Unknown Succinate ER 0000 24HR every day Lisinopril / Active Tablets 20mg 1 by mouth Unknown 0000 every day Proair HFA / Active Aerosol 108(90Base 2 puffs by Unknown 0000 ) mcg/Act mouth every 4 hours as needed Indomethacin / Active Capsules 50mg Take 1 Unknown 0000 Capsule By Mouth Three Times Daily as Needed For Gout With Food In Your Stomach Hydrocodone-Ac / Active Tablets 5-325mg Breiman, etaminophen 0000 MD Philip Ibuprofen / Active Tablets 600mg Take 1 Unknown 0000 Tablet By Mouth Three Times Daily With Food In Your Stomach Toprol XL 04/19/ Hx Tablets 100mg 180tab 1 po qd Mod[place] 2004 scar Ledesma M.D. Diovan HCT 11/13/ Hx Tablets 80mg;12.5 180tab qd Modetso 2004 mg scar Ledesma M.D. Toprol XL 11/12/ Hx Tablets 100mg 30tabs 1 po qd Unknown 2003 - 2003 Hyzaar 11/07/ Hx Tablets 50mg;12.5 30tabs 1 PO qd Unknown 2004 - mg 2003 Toprol XL 11/07/ Hx Tablets 50mg 30tabs 1 po qd Unknown 2003 Potassium 00/ Hx per PT Unknown 0000 595mg supplement qd Amlodipine / Hx Tablets 10mg 1 by mouth Unknown Besylate 0000 every day Immunizations Description No Information Available Vital Signs Date Vital Result Comment 07/08/2018 10:02am Height 63 inches 5'3" Weight 350.00 lb Heart Rate 72 /min BP Systolic Sitting 128 mmHg BP Diastolic Sitting 80 mmHg Respiratory Rate 18 /min Body Temperature 97.4 F BMI (Body Mass Index) 62.0 kg/m2 08/20/2015 3:23pm Height 64 inches 5'4" Weight 350.00 lb Heart Rate 88 /min BP Systolic 131 mmHg BP Diastolic 80 mmHg BMI (Body Mass Index) 60.1 kg/m2 07/11/2013 3:34pm Height 64 inches 5'4" Weight 350.00 lb Heart Rate 78 /min BP Systolic 156 mmHg BP Diastolic 86 mmHg BMI (Body Mass Index) 60.1 kg/m2 06/11/2005 2:12pm Height 63 inches 5'3" Weight 320.00 lb Heart Rate 74 /min BP Systolic Sitting 186 mmHg L BP Diastolic Sitting 94 mmHg L BP Systolic Standing 184 mmHg L BP Diastolic Standing 110 mmHg L O2 % BldC Oximetry 97 % BMI (Body Mass Index) 56.7 kg/m2 11/08/2003 8:24am Height 64 inches Weight 329.00 lb BP Systolic Sitting 160 mmHg BP Diastolic Sitting 110 mmHg BMI (Body Mass Index) 56.5 kg/m2 Results Description No Information Available Procedures Date Code Description Status 06/11/2005 56090 EKG Tracing & Interpretation Completed 11/08/2003 94900 EKG Tracing & Interpretation Completed Encounters Type Date Location Provider Dx Diagnosis Office Visit 08/20/2015 [facility] Kelsey, 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 knee Office Visit 07/11/2013 [facility] Jonathan Kelsey, 716.96 Arthropathy Unspec 3:00p [facility] Lower Leg [facility] Office Visit 06/11/2005 [facility] Modesto Seymour 425.9 Cardiomyopathy 2:20p [facility] Ledesma Secondary Unspecified 401.0 Hypertension Malignant 278.01 Obesity Morbid Plan of Treatment 07/08/2018 - Chino Cohen MD, FACSK80.80 Other cholelithiasis without obstructionNew Medication:Percocet 5-325 mg - 1 tablet by mouth every 4 hours as needed painFollow up:Operating roomR10.84 Generalized abdominal painR18.8 Other ascites
[2018-07-28] MEDS ORDERED: Vancomycin(*) 1,750 MG in NS 0.9% 500 ML* 500 ML IVPB STA (14:07)
[2018-07-28 14:08] LABS: Activated Partial Thrombo Time 28.8 seconds (26.0-36.3); INR 1.02 (0.77-1.02)
[2018-07-28 14:18] LABS: Albumin 3.1 g/dL (3.2-5.2); Albumin/Globulin Ratio 0.8 (1-3); BUN/Creatinine Ratio 17.8 (8-20); C Reactive Protein 246.21 mg/L (<8.01); Calcium 9.4 mg/dL (8.6-10.3); EGFR Non-African American 10.4 (>60); Globulin 3.7 g/dL (2-4); Potassium 4.5 mmol/L (3.5-5.0); Total Bilirubin 0.5 mg/dL (0.2-1.0); Total Protein 6.8 g/dL (6.4-8.9)
--- NOTE | 2018-07-28 15:28 | HP ---
H&P (Free Text) History and Physical: [facility] History and Physical CC: dizziness HPI: 63F with htn, recent diagnosis of cancer presents with dizziness and weakness. The patient had been seen about a month ago for abdominal pain. She had a gallbladder ultrasound and ct scan. At that time she went to surgery to have her gallbladder removed but it was found that she had metastatic disease throughout her abdomen. 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 She had an appointment to see surgery tomorrow but she began feeling dizzy and week. She came to the ER and was found to be hypotensive. She states she has not been eating or drinking well since her surgery. The patients lab showed acute renal failure. She is on a combination massimo thiazide and take nsaids. The patient had several liters of iv fluid and now her bp is in the low 90s. ROS - as per HPI PMHx - htn, recent diagnosis of adenocarcinoma PSHx - right knee surgery, c section, right cataract surgery All - nkda SocHx - no drugs, former smoker, rare etoh FamHx - htn, dm, cardiac disease PE Vital Signs: Temp Pulse Resp BP Pulse Ox 98.0 F 106 16 95/58 97 07/28/18 12:50 07/28/18 15:05 07/28/18 15:05 07/28/18 15:05 07/28/18 15:05 Gen - obese, nad heent - ncat, eomi neck - no jvd cv - s1/s2, tachy pulm - cta, no wheeze abd - soft, +tenderness ext - no edema neuro - non-focal Labs Laboratory Results - last 24 hr 07/28/18 07/28/18 07/28/18 13:28 13:28 13:28 WBC 13.5 H RBC 4.99 Hgb 13.7 Hct 42 MCV 83 MCH 27 MCHC 33 RDW 16 H Plt Count 458 H D MPV 8.7 Neut % (Auto) 84.5 Lymph % (Auto) 8.8 [place] % (Auto) 5.5 Eos % (Auto) 0.7 Baso % (Auto) 0.5 Absolute Neuts (auto) 11.4 H Absolute Lymphs (auto) 1.2 Absolute Monos (auto) 0.7 Absolute Eos (auto) 0.1 Absolute Basos (auto) 0.1 Absolute Nucleated RBC 0 Nucleated RBC % 0 INR (Anticoag Therapy) 1.02 APTT 28.8 Sodium 131 L Potassium 4.5 Chloride 93 L Carbon Dioxide 23 Anion Gap 15 H BUN 77 H Creatinine 4.32 H Est GFR ( Amer) 12.6 Est GFR (Non-Af Amer) 10.4 BUN/Creatinine Ratio 17.8 Glucose 126 H Lactic Acid Calcium 9.4 Total Bilirubin 0.50 AST 41 H ALT 31 Alkaline Phosphatase 318 H Troponin I 0.04 H* C-Reactive Protein 246.21 H B-Natriuretic Peptide Total Protein 6.8 Albumin 3.1 L Globulin 3.7 Albumin/Globulin Ratio 0.8 L 07/28/18 07/28/18 13:28 13:28 WBC RBC Hgb Hct MCV MCH MCHC RDW Plt Count MPV Neut % (Auto) Lymph % (Auto) [place] % (Auto) Eos % (Auto) Baso % (Auto) Absolute Neuts (auto) Absolute Lymphs (auto) Absolute Monos (auto) Absolute Eos (auto) Absolute Basos (auto) Absolute Nucleated RBC Nucleated RBC % INR (Anticoag Therapy) APTT Sodium Potassium Chloride Carbon Dioxide Anion Gap BUN Creatinine Est GFR ( Amer) Est GFR (Non-Af Amer) BUN/Creatinine Ratio Glucose Lactic Acid 2.1 H* Calcium Total Bilirubin AST ALT Alkaline Phosphatase Troponin I C-Reactive Protein B-Natriuretic Peptide 176 H Total Protein Albumin Globulin Albumin/Globulin Ratio Imaging CXR 07/28 IMPRESSION: LEFT PLEURAL EFFUSION. LEFT BASILAR INFILTRATE IS LIKELY PRESENT. Impression 63F with htn, recent diagnosis of adenocarcinoma of unkown primary presents with weakness, fatigue, found to have acute renal failure Plan Neuro - pain control CV - hypotension - suspect hypovolemia - responding to iv hydration - hold off on vasopressors at this time pulm - oxygenating well on room air id - afebrile - wbc 13.5 - received vanco/zosyn in er - will hold off on abx for now - f/u cultures gi - npo for now renal - acute renal failure - urinary obstruction vs dehydration and medication effect - ct pending to eval for obstruction - check urine lytes - iv hydration - avoid nephrotoxins heme - adenocarcinoma - likely upper gi primary as per pathology - discussed with oncology who will see the patient endo - check fs, niss lines - piv ppx - gi/dvt full code Critical Care Time: 70 mins
[2018-07-28] MEDS: Lactated Ringers 1000 ML Bag* 1,000 ML IV SCH ×2 (16:28→22:58)
[2018-07-28 18:20] LABS: Urine Appearance Cloudy; Urine Bacteria Absent (Absent); Urine Bilirubin Negative (Negative); Urine Blood 1+ (Negative); Urine Color Yellow; Urine Glucose Negative (Negative); Urine Ketones Trace (Negative); Urine Nitrite Negative (Negative); Urine Protein 1+(30 mg/dL) (Negative); Urine Red Blood Cell 1+(3-5/hpf) (Absent); Urine Specific Gravity 1.018 (1.010-1.030); Urine Urobilinogen Negative (Negative); Urine White Blood Cell 2+(11-20/hpf) (Absent)
[2018-07-28 18:24] LABS: Urine Creatinine Concentration 227.36 mg/dL
[2018-07-28] MEDS: Nystatin TOP POWDER* 15 GM BTL TOPICAL SCH (21:02)
[2018-07-28] MEDS: Heparin VIAL(*) 5000 UNITS/ML VIAL (FIVE THOUSAND) SUBCUT SCH (22:29)
[2018-07-29] MEDS: Morphine VIAL* 4 MG/ML VIAL (1 ml vial) IV PRN ×5 (02:39→20:29)
[2018-07-29 04:59] LABS: ABS Basophils 0.1 10^3/ul (0-0.2); ABS Eosinophils 0.2 10^3/ul (0-0.6); ABS Lymphocytes 1.3 10^3/ul (1.0-4.8); ABS Monocytes 0.9 10^3/ul (0-0.8); ABS Neutrophils 9.7 10^3/ul (1.5-7.7); ABS Nucleated RBC 0 10^3/ul; Eosinophil % 1.9 %; Hematocrit 35 % (35-47); Hemoglobin 11.3 g/dl (12.0-16.0); Mean Corpuscular HGB Conc 33 g/dl (31-36); Mean Corpuscular Hemoglobin 27 pg (27-31); Mean Corpuscular Volume 83 fL (80-97); Mean Platelet Volume 8.1 fL (7.4-10.4); Nucleated Red Blood Cells % 0; Platelet Count 369 10^3/ul (150-450); Red Blood Count 4.18 10^6/ul (4.00-5.40); Red Cell Distribution Width 16 % (10.5-15); White Blood Count 12.2 10^3/ul (3.5-10.8)
[2018-07-29 05:09] LABS: INR 1.1 (0.77-1.02)
[2018-07-29 05:18] LABS: Albumin 2.4 g/dL (3.2-5.2); Albumin/Globulin Ratio 0.8 (1-3); BUN/Creatinine Ratio 18.4 (8-20); Calcium 8.1 mg/dL (8.6-10.3); EGFR Non-African American 11.9 (>60); Globulin 3.2 g/dL (2-4); Indirect Bilirubin 0.3 mg/dL (0.3-1.0); Magnesium 2.5 mg/dL (1.9-2.7); Phosphorus 6.2 mg/dL (2.5-5.0); Potassium 4.5 mmol/L (3.5-5.0); Total Bilirubin 0.4 mg/dL (0.2-1.0); Total Protein 5.6 g/dL (6.4-8.9)
[2018-07-29] MEDS ORDERED: NS 0.9% 500 ML* 500 ML IV ONE (05:21)
--- NOTE | 2018-07-29 05:22 | PN ---
Progress Note - Progress Note Date of Service: 07/29/18 Note: Patient uncomfortable in beginning of shift from her mobley. Removed mobley. Found to be retaining urine. Patient refused to have mobley reinserted. Soft BP 's this AM. Will give 500 cc NS bolus
[2018-07-29] MEDS: Lactated Ringers 1000 ML Bag* 1,000 ML IV SCH ×3 (05:32→14:47)
[2018-07-29 05:34] LABS: Carcinoembryonic Antigen 11.8 ng/mL (0.1-5.0)
[2018-07-29] MEDS: Heparin VIAL(*) 5000 UNITS/ML VIAL (FIVE THOUSAND) SUBCUT SCH ×3 (05:40→20:29)
[2018-07-29] MEDS: Ondansetron INJ* 2 MG/ML VIAL IV PRN (07:31)
[2018-07-29] MEDS ORDERED: Perflutren Lipid Microsphere* 3 ML VIAL ONE (08:07)
--- NOTE | 2018-07-29 08:54 | PN ---
Date of Service: 07/29/18 Critical Care Services: 63F with htn, recent diagnosis of adenocarcinoma of unkown primary presents with weakness, fatigue, found to have acute renal failure 1: renal function improving. bp borderline. Vital Signs: Temp Pulse Resp BP SpO2 FiO2 96.1 F 76 26 100/53 94 07/29/18 07:31 07/29/18 08:16 07/29/18 08:16 07/29/18 08:16 07/29/18 08:16 Physical Exam: Gen - obese, nad heent - ncat, eomi neck - no jvd cv - s1/s2, no murmur pulm - cta, no wheeze abd - soft, +tenderness ext - no edema neuro - non-focal Fluid Balance (Past 24 Hours): I= O= Net Intake & Output 07/27/18 07/28/18 07/29/18 07/30/18 06:59 06:59 06:59 06:59 Intake Total 5973 0 Output Total 170 Balance 5803 0 Weight 155.9 kg Intake: IV Fluids 5973 LR 2133 Vancomycin 240 ns 500 Oral 0 0 Output: Urine 50 Mobley 120 Labs: Laboratory Results - last 24 hr 07/28/18 07/28/18 07/28/18 13:28 13:28 13:28 WBC 13.5 H RBC 4.99 Hgb 13.7 Hct 42 MCV 83 MCH 27 MCHC 33 RDW 16 H Plt Count 458 H D MPV 8.7 Neut % (Auto) 84.5 Lymph % (Auto) 8.8 [place] % (Auto) 5.5 Eos % (Auto) 0.7 Baso % (Auto) 0.5 Absolute Neuts (auto) 11.4 H Absolute Lymphs (auto) 1.2 Absolute Monos (auto) 0.7 Absolute Eos (auto) 0.1 Absolute Basos (auto) 0.1 Absolute Nucleated RBC 0 Nucleated RBC % 0 INR (Anticoag Therapy) 1.02 APTT 28.8 Sodium 131 L Potassium 4.5 Chloride 93 L Carbon Dioxide 23 Anion Gap 15 H BUN 77 H Creatinine 4.32 H Est GFR ( Amer) 12.6 Est GFR (Non-Af Amer) 10.4 BUN/Creatinine Ratio 17.8 Glucose 126 H Lactic Acid Calcium 9.4 Phosphorus Magnesium Total Bilirubin 0.50 Direct Bilirubin Indirect Bilirubin AST 41 H ALT 31 Alkaline Phosphatase 318 H Troponin I 0.04 H* C-Reactive Protein 246.21 H B-Natriuretic Peptide Total Protein 6.8 Albumin 3.1 L Globulin 3.7 Albumin/Globulin Ratio 0.8 L Carcinoembryonic Ag Urine Color Urine Appearance Urine pH Ur Specific [place] Urine Protein Urine Ketones Urine Blood Urine Nitrate Urine Bilirubin Urine Urobilinogen Ur Leukocyte Esterase Urine WBC (Auto) Urine RBC (Auto) Ur Squamous Epith Cells Urine Bacteria Hyaline Casts Urine Osmolality Ur Creatinine Concen U Sodium Concentration Urine Glucose Influenza A (Rapid) Influenza B (Rapid) Blood Type Antibody Screen 07/28/18 07/28/18 07/28/18 13:28 13:28 15:20 WBC RBC Hgb Hct MCV MCH MCHC RDW Plt Count MPV Neut % (Auto) Lymph % (Auto) [place] % (Auto) Eos % (Auto) Baso % (Auto) Absolute Neuts (auto) Absolute Lymphs (auto) Absolute Monos (auto) Absolute Eos (auto) Absolute Basos (auto) Absolute Nucleated RBC Nucleated RBC % INR (Anticoag Therapy) APTT Sodium Potassium Chloride Carbon Dioxide Anion Gap BUN Creatinine Est GFR ( Amer) Est GFR (Non-Af Amer) BUN/Creatinine Ratio Glucose Lactic Acid 2.1 H* Calcium Phosphorus Magnesium Total Bilirubin Direct Bilirubin Indirect Bilirubin AST ALT Alkaline Phosphatase Troponin I C-Reactive Protein B-Natriuretic Peptide 176 H Total Protein Albumin Globulin Albumin/Globulin Ratio Carcinoembryonic Ag Urine Color Urine Appearance Urine pH Ur Specific [place] Urine Protein Urine Ketones Urine Blood Urine Nitrate Urine Bilirubin Urine Urobilinogen Ur Leukocyte Esterase Urine WBC (Auto) Urine RBC (Auto) Ur Squamous Epith Cells Urine Bacteria Hyaline Casts Urine Osmolality Ur Creatinine Concen U Sodium Concentration Urine Glucose Influenza A (Rapid) Negative Influenza B (Rapid) Negative Blood Type Antibody Screen 07/28/18 07/28/18 07/28/18 17:41 17:41 17:42 WBC RBC Hgb Hct MCV MCH MCHC RDW Plt Count MPV Neut % (Auto) Lymph % (Auto) [place] % (Auto) Eos % (Auto) Baso % (Auto) Absolute Neuts (auto) Absolute Lymphs (auto) Absolute Monos (auto) Absolute Eos (auto) Absolute Basos (auto) Absolute Nucleated RBC Nucleated RBC % INR (Anticoag Therapy) APTT Sodium Potassium Chloride Carbon Dioxide Anion Gap BUN Creatinine Est GFR ( Amer) Est GFR (Non-Af Amer) BUN/Creatinine Ratio Glucose Lactic Acid 0.8 Calcium Phosphorus Magnesium Total Bilirubin Direct Bilirubin Indirect Bilirubin AST ALT Alkaline Phosphatase Troponin I C-Reactive Protein B-Natriuretic Peptide Total Protein Albumin Globulin Albumin/Globulin Ratio Carcinoembryonic Ag Urine Color Yellow Urine Appearance Cloudy Urine pH 5.0 Ur Specific [place] 1.018 Urine Protein 1+(30 mg/dl) A Urine Ketones Trace A Urine Blood 1+ A Urine Nitrate Negative Urine Bilirubin Negative Urine Urobilinogen Negative Ur Leukocyte Esterase Trace A Urine WBC (Auto) 2+(11-20/hpf) A Urine RBC (Auto) 1+(3-5/hpf) A Ur Squamous Epith Cells Present A Urine Bacteria Absent Hyaline Casts Present A Urine Osmolality Ur Creatinine Concen U Sodium Concentration Urine Glucose Negative Influenza A (Rapid) Influenza B (Rapid) Blood Type A Positive Antibody Screen Negative 07/28/18 07/28/18 07/29/18 17:42 17:42 04:49 WBC RBC Hgb Hct MCV MCH MCHC RDW Plt Count MPV Neut % (Auto) Lymph % (Auto) [place] % (Auto) Eos % (Auto) Baso % (Auto) Absolute Neuts (auto) Absolute Lymphs (auto) Absolute Monos (auto) Absolute Eos (auto) Absolute Basos (auto) Absolute Nucleated RBC Nucleated RBC % INR (Anticoag Therapy) APTT Sodium 132 L Potassium 4.5 Chloride 99 L Carbon Dioxide 23 Anion Gap 10 BUN 71 H Creatinine 3.85 H Est GFR ( Amer) 14.4 Est GFR (Non-Af Amer) 11.9 BUN/Creatinine Ratio 18.4 Glucose 87 Lactic Acid Calcium 8.1 L Phosphorus 6.2 H Magnesium 2.5 Total Bilirubin 0.40 Direct Bilirubin 0.10 Indirect Bilirubin 0.3 AST 39 ALT 25 Alkaline Phosphatase 275 H Troponin I C-Reactive Protein B-Natriuretic Peptide Total Protein 5.6 L Albumin 2.4 L Globulin 3.2 Albumin/Globulin Ratio 0.8 L Carcinoembryonic Ag 11.8 H Urine Color Urine Appearance Urine pH Ur Specific [place] Urine Protein Urine Ketones Urine Blood Urine Nitrate Urine Bilirubin Urine Urobilinogen Ur Leukocyte Esterase Urine WBC (Auto) Urine RBC (Auto) Ur Squamous Epith Cells Urine Bacteria Hyaline Casts Urine Osmolality 368 Ur Creatinine Concen 227.36 U Sodium Concentration 18 Urine Glucose Influenza A (Rapid) Influenza B (Rapid) Blood Type Antibody Screen 07/29/18 07/29/18 04:49 04:49 WBC 12.2 H RBC 4.18 Hgb 11.3 L Hct 35 MCV 83 MCH 27 MCHC 33 RDW 16 H Plt Count 369 MPV 8.1 Neut % (Auto) 79.2 Lymph % (Auto) 11.0 [place] % (Auto) 7.2 Eos % (Auto) 1.9 Baso % (Auto) 0.7 Absolute Neuts (auto) 9.7 H Absolute Lymphs (auto) 1.3 Absolute Monos (auto) 0.9 H Absolute Eos (auto) 0.2 Absolute Basos (auto) 0.1 Absolute Nucleated RBC 0 Nucleated RBC % 0 INR (Anticoag Therapy) 1.10 H APTT Sodium Potassium Chloride Carbon Dioxide Anion Gap BUN Creatinine Est GFR ( Amer) Est GFR (Non-Af Amer) BUN/Creatinine Ratio Glucose Lactic Acid Calcium Phosphorus Magnesium Total Bilirubin Direct Bilirubin Indirect Bilirubin AST ALT Alkaline Phosphatase Troponin I C-Reactive Protein B-Natriuretic Peptide Total Protein Albumin Globulin Albumin/Globulin Ratio Carcinoembryonic Ag Urine Color Urine Appearance Urine pH Ur Specific [place] Urine Protein Urine Ketones Urine Blood Urine Nitrate Urine Bilirubin Urine Urobilinogen Ur Leukocyte Esterase Urine WBC (Auto) Urine RBC (Auto) Ur Squamous Epith Cells Urine Bacteria Hyaline Casts Urine Osmolality Ur Creatinine Concen U Sodium Concentration Urine Glucose Influenza A (Rapid) Influenza B (Rapid) Blood Type Antibody Screen Studies: CXR 1/2 IMPRESSION: LEFT PLEURAL EFFUSION. LEFT BASILAR INFILTRATE IS LIKELY PRESENT. CT abd/pel 1/2 IMPRESSION: Moderate amount of ascites is noted. Study is extremely limited due to body habitus. Gallstones are noted. Moderate-sized left pleural effusion is noted. Indeterminate positioning of the Mobley catheter. Impression: 63F with htn, recent diagnosis of adenocarcinoma of unkown primary presents with weakness, fatigue, found to have acute renal failure Plan: Neuro - pain control CV - hypotension - suspect hypovolemia - responding to iv hydration - hold off on vasopressors at this time - tte pending pulm - left pleural effusion - 2/2 malignancy? vs low protein state - would be difficult to drain given body habitus - if becomes symptomatic will re-evaluate id - afebrile - wbc mildly elevated - received vanco/zosyn in er - will hold off on abx for now - f/u cultures gi - diet as tolerated renal - acute renal failure - multifactorial from dehydration and massimo/thiazide/nsaids - improving - patient requested mobley removal - strict i/o - monitor lytes heme - adenocarcinoma - likely upper gi primary as per pathology - discussed with oncology who will see the patient endo - check fs, niss lines - piv ppx - gi/dvt full code Possible transfer if bp holds Critical Care Time: 45 mins
[2018-07-29] MEDS ORDERED: Lactated Ringers 1000 ML Bag* 1,000 ML IV ONE (09:00)
[2018-07-29] MEDS ORDERED: Docusate CAP* 100 MG PO PRN (09:34)
[2018-07-29] MEDS ORDERED: Senna TAB PO PRN (09:34)
--- NOTE | 2018-07-29 10:06 | CONSULT ---
Consultation - Reason for Consultation Reason for Consultation: adenocarcinoma of unknown primary Ordering Provider: Chino Cohen Chief Complaint: inability to tolerate POs and abdominal pain History of Present Illness: 63 yo morbidly obese F w PMH of HTN and gout presenting with abdominal pain and dizziness. Arlin was recently taken to the OR for a diagnostic laproscopy after presenting with 2 months of increasing abdominal pain, anorexia and weight loss. She had an outpatient CT scan which showed large gallstones but also ascites and omental caking. She was taken to the OR by Dr. Cohen on 07/16 and was noted to have omental caking, liver studding and ascites. Biopsy of this revealed adenocarcinoma that was CK 7, CA 125, pankeritin, and CEA positive with minimal CDX-2 positivity, TTF-1 negative and ER negative. PDL-1 was 0% and MSI stable. This could be consistent with upper GI, LIGHT EQUIPMENT OPERATOR or breast primary. She was planned to be worked up as an outpatient, however came to the ER with abdominal pain and dizziness and was found to be markedly hypotensive and in acute renal failure. She improved initially overnight however is again hypotensive. She reports anorexia to solids (nothing tastes good and makes her feel bloated). She denies dysphagia. She has not had a bowel movement in several days, and is afraid to take pain meds because of constipation. She did take a "red liquid" as an outpatient which helped with her BMs. Allergies/Medications Allergies/Adverse Reactions: Allergies Allergy/AdvReac Type Severity Reaction Status Date / Time No Known Allergies Allergy Verified 07/28/18 13:48 History - Past Medical History Other History: morbid obesity. HTN. gout. . knee surgery - Family History Other Family History: mother ovarian cancer in 50s - Social History Hx Alcohol Use: No Hx Tobacco Use: Yes - quit 33 yrs ago Marital Status: Review of Systems - Review of Systems General Comments: fatigue, anorexia, abdominal pain, constipation on pain meds, weight loss ( unable to quantify amount). denies specifically breast masses or vaginal discharge. denies dysphagia Physical Exam - Physical Exam Physical Examination: Vital Signs Temp Pulse Resp BP Pulse Ox 96.1 F 83 19 117/70 86 07/29/18 07:31 07/29/18 09:01 07/29/18 09:01 07/29/18 09:01 07/29/18 09:01 current bp 67/40 lying flat in nad morbidly obese dec bs left base s1 s2 nl morbidly obese abdomen, diffuse ttp throughout, well healing port sites trace LE edema no breast masses bilaterally no palpable adenopathy did not ambulate A+O x 3 Results - Lab Results Lab Results: 07/28/18 07/28/18 07/28/18 13:28 13:28 13:28 WBC 13.5 H RBC 4.99 Hgb 13.7 Hct 42 MCV 83 MCH 27 MCHC 33 RDW 16 H Plt Count 458 H D MPV 8.7 Neut % (Auto) 84.5 Lymph % (Auto) 8.8 [place] % (Auto) 5.5 Eos % (Auto) 0.7 Baso % (Auto) 0.5 Absolute Neuts (auto) 11.4 H Absolute Lymphs (auto) 1.2 Absolute Monos (auto) 0.7 Absolute Eos (auto) 0.1 Absolute Basos (auto) 0.1 Absolute Nucleated RBC 0 Nucleated RBC % 0 INR (Anticoag Therapy) 1.02 APTT 28.8 Sodium 131 L Potassium 4.5 Chloride 93 L Carbon Dioxide 23 Anion Gap 15 H BUN 77 H Creatinine 4.32 H Est GFR ( Amer) 12.6 Est GFR (Non-Af Amer) 10.4 BUN/Creatinine Ratio 17.8 Glucose 126 H Lactic Acid Calcium 9.4 Phosphorus Magnesium Total Bilirubin 0.50 Direct Bilirubin Indirect Bilirubin AST 41 H ALT 31 Alkaline Phosphatase 318 H Troponin I 0.04 H* C-Reactive Protein 246.21 H B-Natriuretic Peptide Total Protein 6.8 Albumin 3.1 L Globulin 3.7 Albumin/Globulin Ratio 0.8 L Carcinoembryonic Ag Urine Color Urine Appearance Urine pH Ur Specific [place] Urine Protein Urine Ketones Urine Blood Urine Nitrate Urine Bilirubin Urine Urobilinogen Ur Leukocyte Esterase Urine WBC (Auto) Urine RBC (Auto) Ur Squamous Epith Cells Urine Bacteria Hyaline Casts Urine Osmolality Ur Creatinine Concen U Sodium Concentration Urine Glucose Influenza A (Rapid) Influenza B (Rapid) Blood Type Antibody Screen 07/28/18 07/28/18 07/28/18 13:28 13:28 15:20 WBC RBC Hgb Hct MCV MCH MCHC RDW Plt Count MPV Neut % (Auto) Lymph % (Auto) [place] % (Auto) Eos % (Auto) Baso % (Auto) Absolute Neuts (auto) Absolute Lymphs (auto) Absolute Monos (auto) Absolute Eos (auto) Absolute Basos (auto) Absolute Nucleated RBC Nucleated RBC % INR (Anticoag Therapy) APTT Sodium Potassium Chloride Carbon Dioxide Anion Gap BUN Creatinine Est GFR ( Amer) Est GFR (Non-Af Amer) BUN/Creatinine Ratio Glucose Lactic Acid 2.1 H* Calcium Phosphorus Magnesium Total Bilirubin Direct Bilirubin Indirect Bilirubin AST ALT Alkaline Phosphatase Troponin I C-Reactive Protein B-Natriuretic Peptide 176 H Total Protein Albumin Globulin Albumin/Globulin Ratio Carcinoembryonic Ag Urine Color Urine Appearance Urine pH Ur Specific [place] Urine Protein Urine Ketones Urine Blood Urine Nitrate Urine Bilirubin Urine Urobilinogen Ur Leukocyte Esterase Urine WBC (Auto) Urine RBC (Auto) Ur Squamous Epith Cells Urine Bacteria Hyaline Casts Urine Osmolality Ur Creatinine Concen U Sodium Concentration Urine Glucose Influenza A (Rapid) Negative Influenza B (Rapid) Negative Blood Type Antibody Screen 07/28/18 07/28/18 07/28/18 17:41 17:41 17:42 WBC RBC Hgb Hct MCV MCH MCHC RDW Plt Count MPV Neut % (Auto) Lymph % (Auto) [place] % (Auto) Eos % (Auto) Baso % (Auto) Absolute Neuts (auto) Absolute Lymphs (auto) Absolute Monos (auto) Absolute Eos (auto) Absolute Basos (auto) Absolute Nucleated RBC Nucleated RBC % INR (Anticoag Therapy) APTT Sodium Potassium Chloride Carbon Dioxide Anion Gap BUN Creatinine Est GFR ( Amer) Est GFR (Non-Af Amer) BUN/Creatinine Ratio Glucose Lactic Acid 0.8 Calcium Phosphorus Magnesium Total Bilirubin Direct Bilirubin Indirect Bilirubin AST ALT Alkaline Phosphatase Troponin I C-Reactive Protein B-Natriuretic Peptide Total Protein Albumin Globulin Albumin/Globulin Ratio Carcinoembryonic Ag Urine Color Yellow Urine Appearance Cloudy Urine pH 5.0 Ur Specific [place] 1.018 Urine Protein 1+(30 mg/dl) A Urine Ketones Trace A Urine Blood 1+ A Urine Nitrate Negative Urine Bilirubin Negative Urine Urobilinogen Negative Ur Leukocyte Esterase Trace A Urine WBC (Auto) 2+(11-20/hpf) A Urine RBC (Auto) 1+(3-5/hpf) A Ur Squamous Epith Cells Present A Urine Bacteria Absent Hyaline Casts Present A Urine Osmolality Ur Creatinine Concen U Sodium Concentration Urine Glucose Negative Influenza A (Rapid) Influenza B (Rapid) Blood Type A Positive Antibody Screen Negative 07/28/18 07/28/18 07/29/18 17:42 17:42 04:49 WBC RBC Hgb Hct MCV MCH MCHC RDW Plt Count MPV Neut % (Auto) Lymph % (Auto) [place] % (Auto) Eos % (Auto) Baso % (Auto) Absolute Neuts (auto) Absolute Lymphs (auto) Absolute Monos (auto) Absolute Eos (auto) Absolute Basos (auto) Absolute Nucleated RBC Nucleated RBC % INR (Anticoag Therapy) APTT Sodium 132 L Potassium 4.5 Chloride 99 L Carbon Dioxide 23 Anion Gap 10 BUN 71 H Creatinine 3.85 H Est GFR ( Amer) 14.4 Est GFR (Non-Af Amer) 11.9 BUN/Creatinine Ratio 18.4 Glucose 87 Lactic Acid Calcium 8.1 L Phosphorus 6.2 H Magnesium 2.5 Total Bilirubin 0.40 Direct Bilirubin 0.10 Indirect Bilirubin 0.3 AST 39 ALT 25 Alkaline Phosphatase 275 H Troponin I C-Reactive Protein B-Natriuretic Peptide Total Protein 5.6 L Albumin 2.4 L Globulin 3.2 Albumin/Globulin Ratio 0.8 L Carcinoembryonic Ag 11.8 H Urine Color Urine Appearance Urine pH Ur Specific [place] Urine Protein Urine Ketones Urine Blood Urine Nitrate Urine Bilirubin Urine Urobilinogen Ur Leukocyte Esterase Urine WBC (Auto) Urine RBC (Auto) Ur Squamous Epith Cells Urine Bacteria Hyaline Casts Urine Osmolality 368 Ur Creatinine Concen 227.36 U Sodium Concentration 18 Urine Glucose Influenza A (Rapid) Influenza B (Rapid) Blood Type Antibody Screen 07/29/18 07/29/18 04:49 04:49 WBC 12.2 H RBC 4.18 Hgb 11.3 L Hct 35 MCV 83 MCH 27 MCHC 33 RDW 16 H Plt Count 369 MPV 8.1 Neut % (Auto) 79.2 Lymph % (Auto) 11.0 [place] % (Auto) 7.2 Eos % (Auto) 1.9 Baso % (Auto) 0.7 Absolute Neuts (auto) 9.7 H Absolute Lymphs (auto) 1.3 Absolute Monos (auto) 0.9 H Absolute Eos (auto) 0.2 Absolute Basos (auto) 0.1 Absolute Nucleated RBC 0 Nucleated RBC % 0 INR (Anticoag Therapy) 1.10 H APTT Sodium Potassium Chloride Carbon Dioxide Anion Gap BUN Creatinine Est GFR ( Amer) Est GFR (Non-Af Amer) BUN/Creatinine Ratio Glucose Lactic Acid Calcium Phosphorus Magnesium Total Bilirubin Direct Bilirubin Indirect Bilirubin AST ALT Alkaline Phosphatase Troponin I C-Reactive Protein B-Natriuretic Peptide Total Protein Albumin Globulin Albumin/Globulin Ratio Carcinoembryonic Ag Urine Color Urine Appearance Urine pH Ur Specific [place] Urine Protein Urine Ketones Urine Blood Urine Nitrate Urine Bilirubin Urine Urobilinogen Ur Leukocyte Esterase Urine WBC (Auto) Urine RBC (Auto) Ur Squamous Epith Cells Urine Bacteria Hyaline Casts Urine Osmolality Ur Creatinine Concen U Sodium Concentration Urine Glucose Influenza A (Rapid) Influenza B (Rapid) Blood Type Antibody Screen Assessment and Plan Impression: 63 yo morbidly obese F presenting with 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 Per pathology could be consistent with upper GI, breast, or LIGHT EQUIPMENT OPERATOR. Per radiology, uterus slightly abnormal on CT scan. with family history of LIGHT EQUIPMENT OPERATOR cancer would start with transvaginal ultrasound. If completely normal would agree with upper GI endoscopy once hemodynamically stable. We discussed that treatment will depend on origin of cancer, which at this point is not clear, but would be palliative. She verbalizes her most pressing issue to be balancing her abdominal pain with constipation from pain meds. I would like to do a more aggressive bowel regimen. Her most pressing medical issue is her hypotension which is being managed by the production dispatcher. We will continue to follow with you.
[2018-07-29] MEDS: Nystatin TOP POWDER* 15 GM BTL TOPICAL SCH ×3 (10:58→20:29)
[2018-07-29] MEDS ORDERED: Norepinephrine 16MCG/ML IVPRE* 4,000 MCG/250 ML BAG IV SCH (11:00)
--- NOTE | 2018-07-29 11:13 | ECHO ---
Patient: DANTE SEQUEIRA [facility] Rec#: [id number] : 1955 Date: 07/29/2018 Age: 63y Height: 157 cm / 61.8 in Weight: 114 kg / 251.3 lbs Sex: F BSA: 2.1 Room#: ICU 3 Admit Date#: 07/28/2018 Type: Inpatient Referring: Mina Porter DO Reading: Kaushik Robertson MD Semiconductor Equipment Technician: Linh Boyle,LUCILACS,RDMS CC: ADELAIDE HIGGINBOTHAM Transthoracic Echocardiogram Indication: CHF BP: 87/54 HR: 75 Rhythm: NSR Findings History: HTN, metastatic adenocarcinoma Technical Comments: The study is technically difficult. The study is technically limited due to patient body habitus. Left Ventricle: The left ventricular chamber size is normal. The left ventricle appears hyperdynamic. The estimated ejection fraction is greater than 65%. There is septal flattening of the interventricular septum consistent with right ventricular volume or pressure overload. There is no consistent Doppler evidence of clinically significant diastolic dysfunction. Left Atrium: The left atrial chamber size is normal. Right Ventricle: The right ventricle wall thickness is mildly increased. The right ventricular cavity size is normal. The right ventricular global systolic function is normal. Right Atrium: The right atrial cavity size is normal. Aortic Valve: The aortic valve structure is not well visualized. There is no evidence of aortic regurgitation. There is no evidence of aortic stenosis. Mitral Valve: There is mitral annular calcification. The mitral valve leaflets do not appear thickened. There is no evidence of mitral regurgitation. There is no evidence of mitral stenosis. Tricuspid Valve: The tricuspid valve structure is not well visualized. The tricuspid valve leaflets are not thickened. There is no evidence of tricuspid valve regurgitation. Unable to estimate the right ventricular systolic pressure. Pulmonic Valve: The pulmonic valve structure is not well visualized. Pericardium: There is no significant pericardial effusion. There is a large pleural effusion. Aorta: The ascending aorta is not well visualized. There is no dilatation of the aortic arch. There is no dilation of the aortic root. Pulmonary Artery: The main pulmonary artery is not well visualized. Venous: The inferior vena cava is not visualized. Contrast: Definity was used to optimize study. A total of 3 ml was used. Summary: There was not any prior study for comparison. Conclusions The left ventricular chamber size is normal. The estimated ejection fraction is greater than 65%. There is septal flattening of the interventricular septum consistent with right ventricular volume or pressure overload. No significant valvular disease There is no evidence of tricuspid valve regurgitation. Unable to estimate the right ventricular systolic pressure. Measurements Name Value Normal Range RAd ISD 4CH 4.2 cm (3.4 - 4.9) RA (A4C)W 3.4 cm (2.9 - 4.6) Aortic Annulus 2 cm (1.4 - 2.6) Ao root diameter (2D) 2.9 cm (2.1 - 3.5) Aortic arch 3 cm (1.8 - 3.4) LA dimension (AP) 2D 3.1 cm (2.3 - 3.8) LAd ISD 4CH 4.8 cm (2.9 - 5.3) LA ISD 4CH W 3.5 cm (2.5 - 4.5) Name Value Normal Range MV E-wave Vmax 0.8 m/sec - MV deceleration time 216 msec - MV A-wave Vmax 0.5 m/sec - MV E:A ratio 1.6 ratio - LV septal e' Vmax 0.06 m/sec - LV lateral e' Vmax 0.07 m/sec - LV E:e' septal ratio 14 ratio - LV E:e' lateral ratio 11 ratio - Name Value Normal Range AV Vmax 1.7 m/sec - AV VTI 27.5 cm - AV peak gradient 12 mmHg - AV mean gradient 5 mmHg - LVOT Vmax 1.2 m/sec - LVOT VTI 23 cm - LVOT peak gradient 6 mmHg - LVOT mean gradient 3 mmHg - ALEXA Vmax 1 m/sec - Name Value Normal Range RAP 8 mmHg -
[2018-07-29 11:20] LABS: TSH (Thyroid Stimulating Horm) 5.02 mcIU/mL (0.34-5.60)
[2018-07-29 12:07] LABS: Free T4 0.96 ng/dL (0.61-1.12)
[2018-07-29] MEDS: Norepinephrine VIAL* 4 MG in NS 0.9% 250 ML* 246 ML IV SCH (12:53)
[2018-07-29] MEDS: cefTRIAXone(*) 1 GM in NS 0.9% 50 ML* 50 ML IVPB SCH (15:26)
--- NOTE | 2018-07-29 19:55 | CONS ---
CC: Dr. Aria Bansal; Dr. Chino Cohen * CONSULTATION REPORT: DATE OF CONSULT: 07/29/18 REASON FOR CONSULT: Adenocarcinoma, unknown primary. HISTORY OF PRESENT ILLNESS: This is a 63-year-old morbidly obese female who unfortunately was recently diagnosed with adenocarcinoma with unknown primary. She had an outpatient CT scan which showed cholelithiasis, but also had ascites and omental caking. She was taken to the OR by Dr. Cohen on 07/16/18, which showed omental caking, liver studding, and ascites. Biopsy of this revealed adenocarcinoma with multiple markers including CEA positivity. The constellation of markers is consistent with potentially upper GI, ADMINISTRATIVE EXECUTIVE, breast, but cannot exclude liver or colon. She states that she has had intermittent abdominal pain, worse post surgery. She states the pain is diffuse, across both the left upper quadrant and right upper quadrant, relieved with pain medication, not improved by anything, not worse post-prandially. She states that her appetite has been poor over the last 2 to 3 months and she states that she may have lost a significant amount of weight during this time, but is unable to quantify. She denies any distinct dysphagia or odynophagia to solids or liquids. She did have episodes of constipation post surgery; however, she states that her gave her a red liquid medicine which helped, but unfortunately yielded diarrhea and then she has now reverted to more of a constipation picture. She states she has never had a colonoscopy in the past. She states that her last mammogram was many years ago. She has a family history of maternal ovarian cancer. No family history of GI cancer or malignancies. The remainder of the 14-point review of systems is grossly negative. PAST MEDICAL HISTORY: Hypertension, gout, morbid obesity. PAST SURGICAL HISTORY: , knee surgery, and recent omental biopsies. FAMILY HISTORY: Maternal ovarian cancer, she states her mother was in her 50s. No family history of colon cancer, liver cancer, or GI malignancy or inflammatory bowel disease. SOCIAL HISTORY: Prior tobacco smoker, but quit many years ago. No alcohol use. . REVIEW OF SYSTEMS: The remainder of the 14-point review of systems is grossly negative except for as described in the HPI. PHYSICAL EXAM: Vital Signs: Blood pressure is 104/80, pulse is 82, respiratory rate is 16. She is 93% on room air. In general, she is alert, oriented x3, no acute distress. HEENT: Atraumatic, normocephalic. Pupils equal, round, reactive to light. Conjunctivae are pink. Sclerae are anicteric. Cardiovascular: Regular rate and rhythm, S1, S2. Respiratory: Diminished left greater than right with bibasilar rales. Abdomen: Soft, nontender, nondistended. Bowel sounds hypoactive. Extremities: Bilateral edema. Skin: Scattered ecchymoses. DIAGNOSTIC STUDIES/LAB DATA: White blood cell count 12.2, hemoglobin 13.3, INR 1.10. Sodium 132, chloride 99, BUN is 71, creatinine is 3.85, alkaline phosphatase 275, ALT 25, AST 39, albumin 2.4. CEA is 11.8. TSH was 5.02. She had a CT of the abdomen and pelvis on 07/28/18. This revealed a moderate amount of ascites, gallstones, and a moderate left pleural effusion. Pathology report on 07/16/18 of peritoneal fluid showed malignant adenocarcinoma. The immunohistochemical stain showed intact MLH1, MSH2, MSH6, and PMS2. No evidence of a mismatch repair identified. Biopsies of the omentum and liver caking were positive for moderately differentiated adenocarcinoma. IMPRESSION: 1. Adenocarcinoma, unknown primary. Constellation of tumor markers point to potential upper gastrointestinal source; however, multiple etiologies are possible. She had a CT which per Radiology showed potential abnormalities of the tract. She is having a transvaginal ultrasound. She has a maternal family history of ovarian cancer. If the transvaginal ultrasound is negative for clear source, agree with recommendation for upper GI evaluation given constellation of findings on biopsy. At this time, the patient is still on a small amount of Levophed; however, her hemodynamics appear to be improving. We will keep the patient n.p.o., consideration for possible endoscopic evaluation once hemodynamics have improved. 2. Morbid obesity. 3. Acute renal failure. Creatinine slowly improving, management per primary team. Lactic acidosis, resolved. 4. Hypotension, clinically improving. Still on small dose Levophed. Management per primary team. [id number] #: [id number] MTDD
[2018-07-30] MEDS: Morphine VIAL* 4 MG/ML VIAL (1 ml vial) IV PRN ×4 (00:47→21:13)
[2018-07-30 05:11] LABS: ABS Basophils 0.1 10^3/ul (0-0.2); ABS Eosinophils 0.2 10^3/ul (0-0.6); ABS Lymphocytes 1.1 10^3/ul (1.0-4.8); ABS Monocytes 0.9 10^3/ul (0-0.8); ABS Neutrophils 9.5 10^3/ul (1.5-7.7); ABS Nucleated RBC 0 10^3/ul; Eosinophil % 1.6 %; Hematocrit 35 % (35-47); Hemoglobin 11.3 g/dl (12.0-16.0); Mean Corpuscular HGB Conc 32 g/dl (31-36); Mean Corpuscular Hemoglobin 27 pg (27-31); Mean Corpuscular Volume 84 fL (80-97); Mean Platelet Volume 8.2 fL (7.4-10.4); Nucleated Red Blood Cells % 0; Platelet Count 361 10^3/ul (150-450); Red Blood Count 4.19 10^6/ul (4.00-5.40); Red Cell Distribution Width 16 % (10.5-15); White Blood Count 11.7 10^3/ul (3.5-10.8)
[2018-07-30 05:27] LABS: Calcium 8.1 mg/dL (8.6-10.3); Magnesium 2.3 mg/dL (1.9-2.7); Potassium 4.2 mmol/L (3.5-5.0)
[2018-07-30] MEDS: Heparin VIAL(*) 5000 UNITS/ML VIAL (FIVE THOUSAND) SUBCUT SCH ×3 (06:14→22:04)
--- NOTE | 2018-07-30 08:28 | PN ---
Date of Service: 07/30/18 Critical Care Services: 63F with htn, recent diagnosis of adenocarcinoma of unkown primary presents with weakness, fatigue, found to have acute renal failure 07/29: renal function improving. bp borderline. 07/30: UA weakly positive but culture negative. Requiring low dose levophed. Transvaginal US non-diagnostic. Vital Signs: Temp Pulse Resp BP SpO2 FiO2 96.5 F 84 13 113/56 99 96 07/30/18 07:41 07/30/18 06:01 07/30/18 06:01 07/30/18 06:01 07/30/18 06:01 07/30 04:00 Physical Exam: Gen - obese, nad heent - ncat, eomi neck - no jvd cv - s1/s2, no murmur pulm - cta, no wheeze abd - soft, +tenderness ext - no edema neuro - non-focal Fluid Balance (Past 24 Hours): I= O= Net Intake & Output 07/28/18 07/29/18 07/30/18 07/31/18 06:59 06:59 06:59 06:59 Intake Total 5973 3725.5 Output Total 170 525 Balance 5803 3200.5 Weight 155.9 kg 157.278 kg Intake: IV Fluids 5973 2999 LR 2133 1785 Vancomycin 240 ns 500 1214 IVPB 50 ABX - CEFTRIAXONE 50 Medicated IV 136.5 CC - Norepinephrine/ 136.5 Levophed Oral 0 540 Output: Urine 50 525 Mobley 120 Other: Estimated Void Medium # Voids 1 Labs: Laboratory Results - last 24 hr 07/29/18 07/30/18 07/30/18 04:49 05:00 05:00 WBC 11.7 H RBC 4.19 Hgb 11.3 L Hct 35 MCV 84 MCH 27 MCHC 32 RDW 16 H Plt Count 361 MPV 8.2 Neut % (Auto) 81.1 Lymph % (Auto) 9.0 Perry % (Auto) 7.8 Eos % (Auto) 1.6 Baso % (Auto) 0.5 Absolute Neuts (auto) 9.5 H Absolute Lymphs (auto) 1.1 Absolute Monos (auto) 0.9 H Absolute Eos (auto) 0.2 Absolute Basos (auto) 0.1 Absolute Nucleated RBC 0 Nucleated RBC % 0 Sodium 132 L 134 L Potassium 4.5 4.2 Chloride 99 L 102 Carbon Dioxide 23 23 Anion Gap 10 9 BUN 71 H 61 H Creatinine 3.85 H 2.35 H Est GFR ( Amer) 14.4 25.4 Est GFR (Non-Af Amer) 11.9 21.0 BUN/Creatinine Ratio 18.4 26.0 H Glucose 87 104 H Calcium 8.1 L 8.1 L Phosphorus 6.2 H Magnesium 2.5 2.3 Total Bilirubin 0.40 Direct Bilirubin 0.10 Indirect Bilirubin 0.3 AST 39 ALT 25 Alkaline Phosphatase 275 H Total Protein 5.6 L Albumin 2.4 L Globulin 3.2 Albumin/Globulin Ratio 0.8 L Carcinoembryonic Ag 11.8 H TSH 5.02 Free T4 0.96 Cortisol 16.39 Studies: CXR 07/28 IMPRESSION: LEFT PLEURAL EFFUSION. LEFT BASILAR INFILTRATE IS LIKELY PRESENT. CT abd/pel 07/28 IMPRESSION: Moderate amount of ascites is noted. Study is extremely limited due to body habitus. Gallstones are noted. Moderate-sized left pleural effusion is noted. Indeterminate positioning of the Mobley catheter. Transvaginal US 07/29 IMPRESSION: The sonographic examination, extremely limited due to patient body habitus and positioning limitations, is diagnostic only for peritoneal ascites. Neither the uterus or ovaries are visualized in any meaningful way. Impression: 63F with htn, recent diagnosis of adenocarcinoma of unkown primary presents with weakness, fatigue, found to have acute renal failure, +UA Plan: Neuro - pain control CV - hypotension - suspect hypovolemia but UA positive - c/w iv hydration - on low dose levophed - tte with normal EF pulm - left pleural effusion - 2/2 malignancy? vs low protein state - would be difficult to drain given body habitus - if becomes symptomatic will re-evaluate id - +UA - wbc mildly elevated - afebrile - cultures neg to date - will give 7 days of ceftriaxone given hypotension gi - npo for egd today renal - acute renal failure - multifactorial from dehydration and massimo/thiazide/nsaids - improving - patient requested mobley removal - strict i/o - monitor lytes heme - adenocarcinoma - likely upper gi primary as per pathology - transvaginal US non-diagnostic - for EGD today endo - check fs, niss lines - picc ppx - gi/dvt DNR/DNI Critical Care Time: 55 mins
[2018-07-30] MEDS: Norepinephrine VIAL* 4 MG in NS 0.9% 250 ML* 246 ML IV SCH ×2 (09:02→15:06)
[2018-07-30] MEDS: Nystatin TOP POWDER* 15 GM BTL TOPICAL SCH ×3 (09:02→21:13)
[2018-07-30] MEDS: Lactated Ringers 1000 ML Bag* 1,000 ML IV SCH (11:28)
[2018-07-30] MEDS ORDERED: Lactated Ringers 1000 ML Bag* 1,000 ML IV ONE ×2 (12:00→14:11)
[2018-07-30] MEDS ORDERED: Midazolam* 1 MG/ML 10 ML VIAL (10 MG) ONE (13:46)
[2018-07-30] MEDS ORDERED: fentaNYL* 50 MCG/ML 2 ML VIAL (100 MCG VIAL) ONE (13:46)
[2018-07-30] MEDS: cefTRIAXone(*) 1 GM in NS 0.9% 50 ML* 50 ML IVPB SCH (15:37)
[2018-07-30 16:34] LABS: AFP Tumor Marker 21 ng/mL
[2018-07-30 16:42] LABS: CA 19-9 324 U/mL (<35)
[2018-07-31] MEDS: Ondansetron INJ* 2 MG/ML VIAL IV PRN (00:57)
[2018-07-31] MEDS: Magnesium Hydroxide LIQ* 30 ML UDC PO PRN ×2 (00:57→12:09)
[2018-07-31] MEDS: Morphine VIAL* 4 MG/ML VIAL (1 ml vial) IV PRN ×5 (01:05→20:37)
[2018-07-31] MEDS: Lactated Ringers 1000 ML Bag* 1,000 ML IV SCH ×3 (01:06→16:58)
[2018-07-31] MEDS: Heparin VIAL(*) 5000 UNITS/ML VIAL (FIVE THOUSAND) SUBCUT SCH ×3 (05:41→21:41)
[2018-07-31] MEDS: Norepinephrine VIAL* 4 MG in NS 0.9% 250 ML* 246 ML IV SCH (05:42)
[2018-07-31 05:46] LABS: ABS Basophils 0.1 10^3/ul (0-0.2); ABS Eosinophils 0.2 10^3/ul (0-0.6); ABS Lymphocytes 1.5 10^3/ul (1.0-4.8); ABS Monocytes 0.9 10^3/ul (0-0.8); ABS Neutrophils 9.7 10^3/ul (1.5-7.7); ABS Nucleated RBC 0 10^3/ul; Eosinophil % 1.4 %; Hematocrit 37 % (35-47); Lymphocyte % 12.2 %; Mean Corpuscular HGB Conc 33 g/dl (31-36); Mean Corpuscular Hemoglobin 27 pg (27-31); Mean Corpuscular Volume 84 fL (80-97); Nucleated Red Blood Cells % 0; Platelet Count 379 10^3/ul (150-450); Red Blood Count 4.38 10^6/ul (4.00-5.40); Red Cell Distribution Width 16 % (10.5-15); White Blood Count 12.4 10^3/ul (3.5-10.8)
[2018-07-31 06:02] LABS: BUN/Creatinine Ratio 34.1 (8-20); Calcium 8.7 mg/dL (8.6-10.3); EGFR Non-African American 30.6 (>60); Magnesium 2.3 mg/dL (1.9-2.7); Potassium 4.3 mmol/L (3.5-5.0)
--- NOTE | 2018-07-31 08:36 | PN ---
Date of Service: 07/31/18 Critical Care Services: 63F with htn, recent diagnosis of adenocarcinoma of unkown primary presents with weakness, fatigue, found to have acute renal failure 07/29: renal function improving. bp borderline. 07/30: UA weakly positive but culture negative. Requiring low dose levophed. Transvaginal US non-diagnostic. 07/31: EGD with GE junction nodule which was biopsied yesterday. Continuing to wean levophed. Vital Signs: Temp Pulse Resp BP SpO2 FiO2 98.1 F 97 14 116/63 97 92 07/31/18 07:41 07/31/18 07:00 07/31/18 08:00 07/31/18 06:31 07/31/18 07:00 07/31 04:00 Physical Exam: Gen - obese, nad heent - ncat, eomi neck - no jvd cv - s1/s2, no murmur pulm - cta, no wheeze abd - soft, +tenderness ext - no edema neuro - non-focal Fluid Balance (Past 24 Hours): I= O= Net Intake & Output 07/29/18 07/30/18 07/31/18 08/01/18 06:59 06:59 06:59 06:59 Intake Total 5973 3725.5 2542.0 Output Total 170 525 700 Balance 5803 3200.5 1842.0 Weight 155.9 kg 157.278 kg 156.971 kg Intake: IV Fluids 5973 2999 2354 LR 2133 1785 1717 Vancomycin 240 ns 500 1214 637 IVPB 50 50 ABX - CEFTRIAXONE 50 50 Medicated IV 136.5 118.0 CC - Norepinephrine/ 136.5 118.0 Levophed Oral 0 540 20 Output: Urine 50 525 700 Mobley 120 Other: Estimated Void Medium # Voids 1 Labs: Laboratory Results - last 24 hr 07/29/18 07/30/18 07/31/18 05:05 11:11 05:35 WBC RBC Hgb Hct MCV MCH MCHC RDW Plt Count MPV Neut % (Auto) Lymph % (Auto) Wetzel % (Auto) Eos % (Auto) Baso % (Auto) Absolute Neuts (auto) Absolute Lymphs (auto) Absolute Monos (auto) Absolute Eos (auto) Absolute Basos (auto) Absolute Nucleated RBC Nucleated RBC % Sodium 135 Potassium 4.3 Chloride 102 Carbon Dioxide 23 Anion Gap 10 BUN 58 H Creatinine 1.70 H Est GFR ( Amer) 37.0 Est GFR (Non-Af Amer) 30.6 BUN/Creatinine Ratio 34.1 H Glucose 107 H POC Glucose (mg/dL) 118 H Calcium 8.7 Magnesium 2.3 Tumor Marker AFP 21 H CA 19-9 Antigen 324 H 07/31/18 05:35 WBC 12.4 H RBC 4.38 Hgb 12.0 Hct 37 MCV 84 MCH 27 MCHC 33 RDW 16 H Plt Count 379 MPV 8.0 Neut % (Auto) 78.5 Lymph % (Auto) 12.2 Wetzel % (Auto) 7.2 Eos % (Auto) 1.4 Baso % (Auto) 0.7 Absolute Neuts (auto) 9.7 H Absolute Lymphs (auto) 1.5 Absolute Monos (auto) 0.9 H Absolute Eos (auto) 0.2 Absolute Basos (auto) 0.1 Absolute Nucleated RBC 0 Nucleated RBC % 0 Sodium Potassium Chloride Carbon Dioxide Anion Gap BUN Creatinine Est GFR ( Amer) Est GFR (Non-Af Amer) BUN/Creatinine Ratio Glucose POC Glucose (mg/dL) Calcium Magnesium Tumor Marker AFP CA 19-9 Antigen Studies: CXR 1/2 IMPRESSION: LEFT PLEURAL EFFUSION. LEFT BASILAR INFILTRATE IS LIKELY PRESENT. CT abd/pel 1/ IMPRESSION: Moderate amount of ascites is noted. Study is extremely limited due to body habitus. Gallstones are noted. Moderate-sized left pleural effusion is noted. Indeterminate positioning of the Mobley catheter. Transvaginal US 1/ IMPRESSION: The sonographic examination, extremely limited due to patient body habitus and positioning limitations, is diagnostic only for peritoneal ascites. Neither the uterus or ovaries are visualized in any meaningful way. Impression: 63F with htn, recent diagnosis of adenocarcinoma of unkown primary presents with weakness, fatigue, found to have acute renal failure, +UA Plan: Neuro - pain control CV - hypotension - suspect hypovolemia but UA positive - c/w iv hydration - on low dose levophed - tte with normal EF pulm - left pleural effusion - 2/2 malignancy? vs low protein state - would be difficult to drain given body habitus - if becomes symptomatic will re-evaluate id - +UA - wbc mildly elevated - afebrile - cultures neg to date - will give 7 days of ceftriaxone given hypotension gi - advance diet as tolerated renal - acute renal failure - multifactorial from dehydration and massimo/thiazide/nsaids - improving - patient requested mobley removal - strict i/o - monitor lytes heme - adenocarcinoma - likely upper gi primary as per pathology - transvaginal US non-diagnostic - EGD with GE junction nodule. path pending endo - check fs, niss lines - picc ppx - gi/dvt DNR/DNI If remains off levophed possible transfer in afternoon Critical Care Time: 40 mins
[2018-07-31] MEDS: Nystatin TOP POWDER* 15 GM BTL TOPICAL SCH ×3 (08:42→21:42)
--- NOTE | 2018-07-31 11:43 | PN ---
Progress Note - Progress Note Date of Service: 07/31/18 SOAP: Subjective: []She is feeling better. Has back pain, increased from admission. She is urinating and able to get up to bedside commode. She is not eating and is not hungry. Had EGD yesterday, tolerated well. Feels fluid in abd is increasing. No fevers. Docusate Sodium (Colace Cap*) 100 mg PO BID PRN PRN Reason: CONSTIPATION Heparin Sodium (Porcine) (Heparin Vial(*)) 5,000 units SUBCUT Q8HR [facility] Last Admin: 07/31/18 05:41 Dose: 5,000 units Heparin Sodium (Porcine) (Heparin Flush Picc/Ml/Cvc(*)) 1 - 3 ml FLUSH 0600, 1800 [facility]; Protocol Last Admin: 07/31/18 05:41 Dose: 1 ml Lactated Ringer's (Lactated Ringers 1000 Ml Bag*) 1,000 mls @ 1,000 mls/hr IV .BOLUS [facility] Last Admin: 07/30/18 11:28 Dose: 1,000 mls/hr Norepinephrine Bitartrate 4 mg (/ Sodium Chloride) 250 mls @ 18.75 mls/hr IV Q13H [facility]; Protocol Last Admin: 07/31/18 05:42 Dose: Not Given Ceftriaxone Sodium 1 gm/ (Sodium Chloride) 50 mls @ 200 mls/hr IVPB Q24H [facility] Stop: 08/05/18 13:59 Last Admin: 07/30/18 15:37 Dose: 200 mls/hr Lactated Ringer's (Lactated Ringers 1000 Ml Bag*) 1,000 mls @ 75 mls/hr IV PER RATE [facility] Last Admin: 07/31/18 01:06 Dose: 75 mls/hr Magnesium Hydroxide (Milk Of Magnesia Liq*) 30 ml PO Q6H PRN PRN Reason: INDIGESTION Last Admin: 07/31/18 00:57 Dose: 30 ml Morphine Sulfate (Morphine Vial*) 2 mg IV Q2H PRN PRN Reason: PAIN Last Admin: 07/31/18 08:00 Dose: 2 mg Nystatin (Nystatin Top Powder*) 1 applic TOPICAL TID [facility] Last Admin: 07/30/18 21:13 Dose: 1 applic Ondansetron HCl (Zofran Inj*) 4 mg IV Q6H PRN PRN Reason: NAUSEA Last Admin: 07/31/18 00:57 Dose: 4 mg Senna (Senokot Tab*) 1 tab PO BEDTIME PRN PRN Reason: CONSTIPATION Objective: [] Vital Signs Temp Pulse Resp BP Pulse Ox 98.1 F 90 21 113/77 99 07/31/18 07:41 07/31/18 10:31 07/31/18 10:31 07/31/18 10:31 07/31/18 10:31 On low dose levophed. morbidly obese HEENT no LAD and no oral lesions Dec BS Left base s1 s2 nl morbidly obese abdomen, diffuse ttp throughout, well healing port sites trace LE edema no palpable adenopathy did not ambulate A+O x 3 Bx Omental, liver: Adenocarcinoma, ddx broad but most likely lung or upper GI. Bx: entometrium, negative CT scan A/P - No focal liver lesions on non contrast study. No ovarian masses, endometrial thickening. EGD report pending, gastric nodule Assessment: []63 year old with new diagnosis of adenocarcinoma, diffuse metastatic disease in abdominal cavity. Based on pathologic studies appears to be most likely lung or upper GI primary. Presentation with hypertension and ARF. Likely dehydration, possible sepsis secondary to UTI. Has improving renal function with hydration and IVF but remains on blood pressure support. Plan: []1. Caner of unknown primary. Will follow bx and EGD report. Does not appear likely that described nodule is primary lesion. She has unilateral pleural effusion and next step is dedicated CT of chest but will hold until she is off pressers. 2. ARF. Improving and continues on IVF. 3. Ascites. Possible paracentesis in future once more stable. 4. Encouraged increased oral intake. 5. Lower back pain is likely positional. Given known cancer will need bone scan or MRI spine in the future. 6. PT once able to leave ICU
[2018-07-31] MEDS: cefTRIAXone(*) 1 GM in NS 0.9% 50 ML* 50 ML IVPB SCH (14:18)
[2018-08-01] MEDS: LORazepam INJ* 2 MG/ML 1 ML VIAL IV PUSH PRN ×2 (00:22→08:41)
[2018-08-01] MEDS: Morphine VIAL* 4 MG/ML VIAL (1 ml vial) IV PRN ×4 (00:23→14:58)
[2018-08-01] MEDS: Heparin VIAL(*) 5000 UNITS/ML VIAL (FIVE THOUSAND) SUBCUT SCH ×3 (06:00→21:47)
[2018-08-01 06:44] LABS: ABS Basophils 0.1 10^3/ul (0-0.2); ABS Eosinophils 0.2 10^3/ul (0-0.6); ABS Lymphocytes 1.1 10^3/ul (1.0-4.8); ABS Neutrophils 9.6 10^3/ul (1.5-7.7); ABS Nucleated RBC 0 10^3/ul; Eosinophil % 1.4 %; Hematocrit 36 % (35-47); Hemoglobin 11.5 g/dl (12.0-16.0); Lymphocyte % 9.6 %; Mean Corpuscular HGB Conc 33 g/dl (31-36); Mean Corpuscular Hemoglobin 27 pg (27-31); Mean Corpuscular Volume 84 fL (80-97); Mean Platelet Volume 8.1 fL (7.4-10.4); Nucleated Red Blood Cells % 0; Platelet Count 324 10^3/ul (150-450); Red Blood Count 4.25 10^6/ul (4.00-5.40); Red Cell Distribution Width 17 % (10.5-15); White Blood Count 11.9 10^3/ul (3.5-10.8)
[2018-08-01 06:54] LABS: BUN/Creatinine Ratio 31.7 (8-20); Calcium 8.9 mg/dL (8.6-10.3); EGFR Non-African American 28.6 (>60); Magnesium 2.4 mg/dL (1.9-2.7); Potassium 4.6 mmol/L (3.5-5.0)
[2018-08-01] MEDS: Lactated Ringers 1000 ML Bag* 1,000 ML IV SCH (08:33)
[2018-08-01] MEDS: Nystatin TOP POWDER* 15 GM BTL TOPICAL SCH ×3 (08:56→22:50)
--- NOTE | 2018-08-01 12:43 | PN ---
Progress Note - Progress Note Date of Service: 08/01/18 SOAP: Subjective: []Shoulder pain today, still with back pain. Did eat better today, no increase in abdominal pain. Breathing is fine sitting in bed, has not been up and moving at all. Docusate Sodium (Colace Cap*) 100 mg PO BID PRN PRN Reason: CONSTIPATION Heparin Sodium (Porcine) (Heparin Flush Picc/Ml/Cvc(*)) 1 - 3 ml FLUSH 0600, 1800 [facility]; Protocol Last Admin: 08/01/18 06:18 Dose: 2 ml Heparin Sodium (Porcine) (Heparin Vial(*)) 5,000 units SUBCUT Q12H [facility] [place] Last Admin: 08/01/18 11:09 Dose: 5,000 units Lactated Ringer's (Lactated Ringers 1000 Ml Bag*) 1,000 mls @ 1,000 mls/hr IV .BOLUS [facility] [place] Last Admin: 07/31/18 14:18 Dose: 1,000 mls/hr Ceftriaxone Sodium 1 gm/ (Sodium Chloride) 50 mls @ 200 mls/hr IVPB Q24H [facility] [place] Stop: 08/05/18 13:59 Last Admin: 07/31/18 14:18 Dose: 200 mls/hr Lactated Ringer's (Lactated Ringers 1000 Ml Bag*) 1,000 mls @ 75 mls/hr IV PER RATE [facility] [place] Last Admin: 08/01/18 08:33 Dose: 75 mls/hr Magnesium Hydroxide (Milk Of Magnesia Liq*) 30 ml PO Q6H PRN PRN Reason: INDIGESTION Last Admin: 07/31/18 12:09 Dose: 30 ml Morphine Sulfate (Morphine Vial*) 3 mg IV Q2H PRN PRN Reason: PAIN Last Admin: 08/01/18 08:42 Dose: 3 mg Nystatin (Nystatin Top Powder*) 1 applic TOPICAL TID [facility] [place] Last Admin: 08/01/18 08:56 Dose: 1 applic Ondansetron HCl (Zofran Inj*) 4 mg IV Q6H PRN PRN Reason: NAUSEA Last Admin: 07/31/18 00:57 Dose: 4 mg Oxycodone/Acetaminophen (Percocet 5/325 Tab*) 1 tab PO Q4H PRN PRN Reason: PAIN Senna (Senokot Tab*) 1 tab PO BEDTIME PRN PRN Reason: CONSTIPATION Objective: [] Vital Signs Temp Pulse Resp BP Pulse Ox 97.5 F 102 18 93/66 90 08/01/18 04:07 08/01/18 04:07 08/01/18 10:40 08/01/18 04:07 08/01/18 04:07 morbidly obese HEENT no LAD and no oral lesions Dec BS Left base s1 s2 RRR morbidly obese abdomen, diffuse ttp throughout, well healing port sites trace LE edema no palpable adenopathy did not ambulate A+O x 3 Bx Omental, liver: Adenocarcinoma, ddx broad but most likely lung or upper GI. Bx: entometrium, negative CT scan A/P - No focal liver lesions on non contrast study. No ovarian masses, endometrial thickening. EGD report pending, gastric nodule Trans vaginal us non diagnostic. Assessment: []63 year old with new diagnosis of adenocarcinoma, diffuse metastatic disease in abdominal cavity. Based on pathologic studies appears to be most likely lung or upper GI primary though radiographically cannot rule out malignancy. Presentation with hypertension and ARF. Now improved and stable on floor, Cr stable today at 1.8. Plan: []1. Caner of unknown primary. Will follow bx and EGD report. Does not appear likely that described nodule is primary lesion. She has unilateral pleural effusion, check non contrast CT of chest. Once out of hospital PET scan may be informative. 2. ARF. Improving and continues on IVF. 3. Ascites. Possible paracentesis in future once more stable. 4. Encouraged increased oral intake. Doing better today 5. Lower back and shoulder pain is likely positional. Given known cancer will need bone scan or MRI spine in the future. 6. PT and work on increased activity
[2018-08-01] MEDS: cefTRIAXone(*) 1 GM in NS 0.9% 50 ML* 50 ML IVPB SCH (14:27)
[2018-08-01] MEDS: oxyCODONE/Acetamin 5/325 MG* TAB PO PRN (16:46)
[2018-08-01] MEDS ORDERED: Albumin Human 25%* 50 GM/200 ML BTL IV ONE ×2 (16:52→21:00)
--- NOTE | 2018-08-01 17:10 | PN ---
Subjective Date of Service: 08/01/18 Interval History: Pt seen and examined. Meds and labs reviewed. CC: Initially on my visit, ROS (-). A few hours later, RN informed me pt complaining of 10/10 Right shoulder pain with no known history of injury nor trauma recently to the area. ROS: Denied MCCORMACK/dizziness, F/C, N/V, CP, SOB, increased cough, sputum production , abd pain, diarrhea, constipation, dysuria, , throat pain, and new skin lesions. The rest of the 14 point ROS are unremarkable. PHYSICAL EXAM: GEN APPEARANCE: Awake, not in acute distress, obese HEENT: NC/AT, PERRLA, moist oral mucosa, (-) throat erythema NECK: Soft, supple, (-) cervical LAD, (-)JVD HEART: S1S2 WNL, RRR, No MRG CHEST: CTA, BL, GAE, No W/R/R ABD: Soft, ND/NT, NABS 4x Q, given significant obesity, difficult to assess ascites EXT: No C/C/E SKIN: Warm to touch PSYCH: No active psychosis, hallucinations, depression, SI/HI Objective Active Medications: Docusate Sodium (Colace Cap*) 100 mg PO BID PRN PRN Reason: CONSTIPATION Heparin Sodium (Porcine) (Heparin Flush Picc/Ml/Cvc(*)) 1 - 3 ml FLUSH 0600, 1800 [facility]; Protocol Last Admin: 08/01/18 16:46 Dose: 2 ml Heparin Sodium (Porcine) (Heparin Vial(*)) 5,000 units SUBCUT Q12H [facility] Last Admin: 08/01/18 11:09 Dose: 5,000 units Ceftriaxone Sodium 1 gm/ (Sodium Chloride) 50 mls @ 200 mls/hr IVPB Q24H [facility] Stop: 08/05/18 13:59 Last Admin: 08/01/18 14:27 Dose: 200 mls/hr Albumin Human (Albumin Human 25%*) 50 gm in 200 mls @ 0 mls/hr IV ONCE ONE Stop: 08/01/18 21:01 Magnesium Hydroxide (Milk Of Magnesia Liq*) 30 ml PO Q6H PRN PRN Reason: INDIGESTION Last Admin: 07/31/18 12:09 Dose: 30 ml Morphine Sulfate (Morphine Vial*) 3 mg IV Q2H PRN PRN Reason: PAIN Last Admin: 08/01/18 14:58 Dose: 3 mg Nystatin (Nystatin Top Powder*) 1 applic TOPICAL TID [facility] Last Admin: 08/01/18 15:09 Dose: Not Given Ondansetron HCl (Zofran Inj*) 4 mg IV Q6H PRN PRN Reason: NAUSEA Last Admin: 07/31/18 00:57 Dose: 4 mg Oxycodone/Acetaminophen (Percocet 5/325 Tab*) 1 tab PO Q4H PRN PRN Reason: PAIN Last Admin: 08/01/18 16:46 Dose: 1 tab Senna (Senokot Tab*) 1 tab PO BEDTIME PRN PRN Reason: CONSTIPATION Vital Signs - 8 hr 08/01/18 08/01/18 08/01/18 10:30 10:40 14:58 Respiratory 16 18 18 Rate 08/01/18 16:46 Respiratory 18 Rate Oxygen Devices in Use Now: None Result Diagrams: 08/01/18 06:00 08/01/18 06:00 Microbiology and Other Data: Microbiology 07/28/18 14:18 Aerobic Blood Culture - Preliminary Blood Venous No Growth Day 4 Anaerobic Blood Culture - Preliminary No Growth Day 4 07/28/18 13:28 Aerobic Blood Culture - Preliminary Blood Venous No Growth Day 4 Anaerobic Blood Culture - Preliminary No Growth Day 4 07/30/18 14:50 CLOtest - Final Gastric Antrum 07/28/18 17:42 Urine Culture - Final Urine No Growth (<1,000 CFU/mL) 07/28/18 16:29 Nasal Screen MRSA (PCR) - Final Nasal Mrsa Not Detected 07/28/18 15:05 Influenza Types A,B Antigen - Final Nasal Specimen received for Influenza A/B Molecular testing Assess/Plan/Problems-Billing Assessment: - Patient Problems (1) Metastatic adenocarcinoma Current Visit: Yes Status: Acute Code(s): C79.9 - SECONDARY MALIGNANT NEOPLASM OF UNSPECIFIED SITE SNOMED Code(s): 084675974 Comment: -Unclear primary but likely due to GI source -Pt does have ascites on imaging and agree w/planned diagnostic and possible therapeutic paracentesis in the future -CT of chest ordered by Dr. Florian today revealed moderate to large left-sided pleural effusion w/complete consolidation of LLL (2) Hypotension Current Visit: Yes Status: Acute Comment: -Improved -Thought to be initially due to hypovolemia on admission, however, on review of hospital course and current data, pt had mildly elevated lactic acid level, being treated for UTI given persistent hypotension in the ICU despite fluid resuscitation that required a few days of Levophed (now D/Cd), appears to have been moderately septic by clinical criteria on admission -U/A noted not to be clean catch and Urine Cx (-) -Continue Rocephin, will give IV albumin given albumin <3.0 today and given ascites and pleural effusion, will D/C IVF for now so as not to further exacerbate third spacing (3) Right shoulder pain Current Visit: Yes Status: Acute Code(s): M25.511 - PAIN IN RIGHT SHOULDER SNOMED Code(s): 83003881 Comment: -Shoulder X-ray pendingawaiting result (4) Sepsis secondary to UTI Current Visit: Yes Status: Acute Code(s): A41.9 - SEPSIS, UNSPECIFIED ORGANISM; N39.0 - URINARY TRACT INFECTION, SITE NOT SPECIFIED SNOMED Code(s): 622356303 Comment: -Sepsis now resolved -Continue Rocephin for 7-10 day total therapy -Please see above discussion (5) ALEX (acute kidney injury) Current Visit: Yes Status: Acute Code(s): N17.9 - ACUTE KIDNEY FAILURE, UNSPECIFIED SNOMED Code(s): 83675968 Comment: -Improved -Please see above discussion on D/C of IVF and IV albumin infusion today as ordered (6) DVT prophylaxis Current Visit: Yes Status: Acute Code(s): OPH1368 - SNOMED Code(s): 670523689 Comment: -Renally dosed DVT prophylaxis to [id number] SQ Status and Disposition: -For rehab placement when ready for D/C
[2018-08-02 06:09] LABS: Hematocrit 35 % (35-47); Hemoglobin 11.1 g/dl (12.0-16.0); Mean Corpuscular HGB Conc 32 g/dl (31-36); Mean Corpuscular Hemoglobin 27 pg (27-31); Mean Corpuscular Volume 84 fL (80-97); Mean Platelet Volume 8.1 fL (7.4-10.4); Platelet Count 329 10^3/ul (150-450); Red Blood Count 4.11 10^6/ul (4.00-5.40); Red Cell Distribution Width 17 % (10.5-15); White Blood Count 11.6 10^3/ul (3.5-10.8)
[2018-08-02 06:36] LABS: Albumin 3.1 g/dL (3.2-5.2); Albumin/Globulin Ratio 0.9 (1-3); BUN/Creatinine Ratio 32.2 (8-20); EGFR Non-African American 28.1 (>60); Globulin 3.4 g/dL (2-4); Magnesium 2.4 mg/dL (1.9-2.7); Phosphorus 3.6 mg/dL (2.5-5.0); Potassium 4.6 mmol/L (3.5-5.0); Total Bilirubin 0.6 mg/dL (0.2-1.0); Total Protein 6.5 g/dL (6.4-8.9)
[2018-08-02] MEDS: Heparin VIAL(*) 5000 UNITS/ML VIAL (FIVE THOUSAND) SUBCUT SCH (09:25)
--- NOTE | 2018-08-02 11:27 | CONSULT ---
Palliative / Hospice Consult Ordering Provider: Jamil Harrell - PCP-Marianne - Subjective Code Status: DNR Advance Directives Location: In Chart [facility] Part A Completed: Yes - completed with patient Date: 08/02/18 [facility] Part E Completed:: Yes - completed with patient Date: 08/02/18 - History or Present Illness History or Present Illness: 63 yo female who underwent surgery for her gallbladder but was found to have metastatic cancer in her abdomen which doctors are still trying to determine the source. She was to have her work up as an outpatient but developed weakness and fatigue and was admitted. She has large L pleural effusion with consolidation. CT abd showed ascites, large gallstone and adrenal lesion. Currently she has an EGD biopsy pending. Her other medical problems include HTN , acute renal failure efgr 28 and gout. She was also being treated for sepsis which is resolving . Patient is uncomfortable she has shoulder pain xray showing degenerative changes, back pain which she sees Dr. Alberto and has been aggravated by being in the hospital bed. She wants to go home in her own bed. She wants to be discharged now. She has no appetite. Her EF is 65%, albumin 3.1. She is still taking in all the medical information that she has received. Lab Values: Abnormal Lab Results 08/02/18 08/02/18 05:45 05:45 WBC 11.6 H RBC 4.11 Hgb 11.1 L Hct 35 MCV 84 MCH 27 MCHC 32 RDW 17 H Plt Count 329 MPV 8.1 Sodium 136 Potassium 4.6 Chloride 102 Carbon Dioxide 24 Anion Gap 10 BUN 59 H Creatinine 1.83 H Est GFR ( Amer) 34.0 Est GFR (Non-Af Amer) 28.1 BUN/Creatinine Ratio 32.2 H Glucose 107 H Calcium 9.0 Phosphorus 3.6 Magnesium 2.4 Total Bilirubin 0.60 AST 52 H ALT 30 Alkaline Phosphatase 377 H Total Protein 6.5 Albumin 3.1 L Globulin 3.4 Albumin/Globulin Ratio 0.9 L Laboratory Last Values WBC 11.6 10^3/ul (3.5-10.8) H 08/02/18 05:45 RBC 4.11 10^6/ul (4.00-5.40) 08/02/18 05:45 Hgb 11.1 g/dl (12.0-16.0) L 08/02/18 05:45 Hct 35 % (35-47) 08/02/18 05:45 MCV 84 fL (80-97) 08/02/18 05:45 MCH 27 pg (27-31) 08/02/18 05:45 MCHC 32 g/dl (31-36) 08/02/18 05:45 RDW 17 % (10.5-15) H 08/02/18 05:45 Plt Count 329 10^3/ul (150-450) 08/02/18 05:45 MPV 8.1 fL (7.4-10.4) 08/02/18 05:45 Neut % (Auto) 80.3 % 08/01/18 06:00 Lymph % (Auto) 9.6 % 08/01/18 06:00 Avery % (Auto) 8.2 % 08/01/18 06:00 Eos % (Auto) 1.4 % 08/01/18 06:00 Baso % (Auto) 0.5 % 08/01/18 06:00 Absolute Neuts (auto) 9.6 10^3/ul (1.5-7.7) H 08/01/18 06:00 Absolute Lymphs (auto) 1.1 10^3/ul (1.0-4.8) 08/01/18 06:00 Absolute Monos (auto) 1.0 10^3/ul (0-0.8) H 08/01/18 06:00 Absolute Eos (auto) 0.2 10^3/ul (0-0.6) 08/01/18 06:00 Absolute Basos (auto) 0.1 10^3/ul (0-0.2) 08/01/18 06:00 Absolute Nucleated RBC 0 10^3/ul 08/01/18 06:00 Nucleated RBC % 0 08/01/18 06:00 INR (Anticoag Therapy) 1.10 (0.77-1.02) H 07/29/18 04:49 APTT 28.8 seconds (26.0-36.3) 07/28/18 13:28 Sodium 136 mmol/L (135-145) 08/02/18 05:45 Potassium 4.6 mmol/L (3.5-5.0) 08/02/18 05:45 Chloride 102 mmol/L (101-111) 08/02/18 05:45 Carbon Dioxide 24 mmol/L (22-32) 08/02/18 05:45 Anion Gap 10 mmol/L (2-11) 08/02/18 05:45 BUN 59 mg/dL (6-24) H 08/02/18 05:45 Creatinine 1.83 mg/dL (0.51-0.95) H 08/02/18 05:45 Est GFR ( Amer) 34.0 (>60) 08/02/18 05:45 Est GFR (Non-Af Amer) 28.1 (>60) 08/02/18 05:45 BUN/Creatinine Ratio 32.2 (8-20) H 08/02/18 05:45 Glucose 107 mg/dL (70-100) H 08/02/18 05:45 POC Glucose (mg/dL) 118 mg/dL (70-100) H 07/30/18 11:11 Lactic Acid 0.8 mmol/L (0.5-2.0) 07/28/18 17:41 Calcium 9.0 mg/dL (8.6-10.3) 08/02/18 05:45 Phosphorus 3.6 mg/dL (2.5-5.0) 08/02/18 05:45 Magnesium 2.4 mg/dL (1.9-2.7) 08/02/18 05:45 Total Bilirubin 0.60 mg/dL (0.2-1.0) 08/02/18 05:45 Direct Bilirubin 0.10 mg/dL (0.03-0.18) 07/29/18 04:49 Indirect Bilirubin 0.3 mg/dL (0.3-1.0) 07/29/18 04:49 AST 52 U/L (13-39) H 08/02/18 05:45 ALT 30 U/L (7-52) 08/02/18 05:45 Alkaline Phosphatase 377 U/L (34-104) H 08/02/18 05:45 Troponin I 0.04 ng/mL (<0.04) H* 07/28/18 13:28 C-Reactive Protein 246.21 mg/L (<8.01) H 07/28/18 13:28 B-Natriuretic Peptide 176 pg/mL (<=100) H 07/28/18 13:28 Total Protein 6.5 g/dL (6.4-8.9) 08/02/18 05:45 Albumin 3.1 g/dL (3.2-5.2) L 08/02/18 05:45 Globulin 3.4 g/dL (2-4) 08/02/18 05:45 Albumin/Globulin Ratio 0.9 (1-3) L 08/02/18 05:45 Tumor Marker AFP 21 ng/mL H 07/29/18 05:05 Carcinoembryonic Ag 11.8 ng/mL (0.1-5.0) H 07/29/18 04:49 CA 19-9 Antigen 324 U/mL (<35) H 07/29/18 05:05 TSH 5.02 mcIU/mL (0.34-5.60) 07/29/18 04:49 Free T4 0.96 ng/dL (0.61-1.12) 07/29/18 04:49 Cortisol 16.39 mcg/dL 07/29/18 04:49 Urine Color Yellow 07/28/18 17:42 Urine Appearance Cloudy 07/28/18 17:42 Urine pH 5.0 (5-9) 07/28/18 17:42 Ur Specific [place] 1.018 (1.010-1.030) 07/28/18 17:42 Urine Protein 1+(30 mg/dl) (Negative) A 07/28/18 17:42 Urine Ketones Trace (Negative) A 07/28/18 17:42 Urine Blood 1+ (Negative) A 07/28/18 17:42 Urine Nitrate Negative (Negative) 07/28/18 17:42 Urine Bilirubin Negative (Negative) 07/28/18 17:42 Urine Urobilinogen Negative (Negative) 07/28/18 17:42 Ur Leukocyte Esterase Trace (Negative) A 07/28/18 17:42 Urine WBC (Auto) 2+(11-20/hpf) (Absent) A 07/28/18 17:42 Urine RBC (Auto) 1+(3-5/hpf) (Absent) A 07/28/18 17:42 Ur Squamous Epith Cells Present (Absent) A 07/28/18 17:42 Urine Bacteria Absent (Absent) 07/28/18 17:42 Hyaline Casts Present (Absent) A 07/28/18 17:42 Urine Osmolality 368 mOsm/kg (100-1150) 07/28/18 17:42 Ur Creatinine Concen 227.36 mg/dL 07/28/18 17:42 U Sodium Concentration 18 mmol/L 07/28/18 17:42 Urine Glucose Negative (Negative) 07/28/18 17:42 Influenza A (Rapid) Negative (Negative) 07/28/18 15:20 Influenza B (Rapid) Negative (Negative) 07/28/18 15:20 Blood Type A Positive 07/28/18 17:41 Antibody Screen Negative 07/28/18 17:41 - Objective Active Medications: Docusate Sodium (Colace Cap*) 100 mg PO BID PRN PRN Reason: CONSTIPATION Heparin Sodium (Porcine) (Heparin Flush Picc/Ml/Cvc(*)) 1 - 3 ml FLUSH 0600, 1800 [facility]; Protocol Last Admin: 08/02/18 05:36 Dose: 3 ml Heparin Sodium (Porcine) (Heparin Vial(*)) 5,000 units SUBCUT Q12H [facility] Last Admin: 08/02/18 09:25 Dose: 5,000 units Ceftriaxone Sodium 1 gm/ (Sodium Chloride) 50 mls @ 200 mls/hr IVPB Q24H [facility] Stop: 08/05/18 13:59 Last Admin: 08/01/18 14:27 Dose: 200 mls/hr Magnesium Hydroxide (Milk Of Magnesia Liq*) 30 ml PO Q6H PRN PRN Reason: INDIGESTION Last Admin: 07/31/18 12:09 Dose: 30 ml Morphine Sulfate (Morphine Vial*) 3 mg IV Q2H PRN PRN Reason: PAIN Last Admin: 08/01/18 14:58 Dose: 3 mg Nystatin (Nystatin Top Powder*) 1 applic TOPICAL TID [facility] Last Admin: 08/01/18 22:50 Dose: 1 applic Ondansetron HCl (Zofran Inj*) 4 mg IV Q6H PRN PRN Reason: NAUSEA Last Admin: 07/31/18 00:57 Dose: 4 mg Oxycodone/Acetaminophen (Percocet 5/325 Tab*) 1 tab PO Q4H PRN PRN Reason: PAIN Last Admin: 08/01/18 16:46 Dose: 1 tab Senna (Senokot Tab*) 1 tab PO BEDTIME PRN PRN Reason: CONSTIPATION Vital Signs: Vital Signs: Temp Pulse Resp BP Pulse Ox 98.3 F 96 20 143/73 92 08/02/18 02:58 08/02/18 02:58 08/02/18 02:58 08/02/18 02:58 08/02/18 02:58 Patient Weight: Weight 156.971 kg Intake and Output: Intake & Output 07/31/18 08/01/18 08/02/18 08/03/18 06:59 06:59 06:59 06:59 Intake Total 2542.0 1227 1597 Output Total 700 250 Balance 1842.0 977 1597 Weight 156.971 kg Intake: IV Fluids 2354 667 LR 1717 667 ns 637 IVPB 50 55 ABX - CEFTRIAXONE 50 55 Medicated IV 118.0 15 CC - Norepinephrine/ 118.0 15 Levophed Oral 20 490 1597 Output: Urine 700 250 Other: Estimated Void Large Large # Bowel Movements 1 0 Estimated Stool Amount Large Large # Voids 1 1 ADLs: Meal Record Start: 07/28/18 15: 54 Freq: 09,13,18 Status: Inactive Protocol: Created 07/28/18 15:54 System (Rec: 07/28/18 15:54 System ICU-C14) Document 07/28/18 18:00 [id number] (Rec: 07/28/18 18:06 OLH4250 ICU-C15) Document 07/29/18 09:00 [id number] (Rec: 07/29/18 09:42 [id number] ICU-C25) Document 07/29/18 13:00 EBB6022 (Rec: 07/29/18 13:05 NPV2822 ICU-C25) Document 07/29/18 18:00 TIN1438 (Rec: 07/29/18 18:23 ODL3224 ICU-C25) Document 07/30/18 09:00 EVB7813 (Rec: 07/30/18 09:47 PST2957 ICU-C10) Document 07/30/18 13:00 ZYH0992 (Rec: 07/30/18 15:15 DFI0568 ICU-M33) Document 07/31/18 09:00 RJK5356 (Rec: 07/31/18 10:58 YXQ5316 ICU-C15) ADLs: Meal Record Start: 07/31/18 14: 33 Freq: DAILY@0900,1400,1800 Status: Active Protocol: Created 07/31/18 14:33 [id number] (Rec: 07/31/18 14:33 WZC2489 ICU-C15) Document 07/31/18 18:00 CNV7478 (Rec: 07/31/18 21:26 LXK9710 MED-C09) Document 08/01/18 08:00 SEV2948 (Rec: 08/01/18 18:43 GMT4812 MED-C09) Document 08/01/18 13:18 LRF6897 (Rec: 08/01/18 13:18 YUI3676 MED-C09) Document 08/01/18 18:00 RYK0375 (Rec: 08/01/18 18:45 GOZ9254 MED-C09) Intake and Output Start: 07/28/18 12: 56 Freq: Status: Active Protocol: Created 07/28/18 12:56 System (Rec: 07/28/18 12:56 System ED-C24) Intake and Output Start: 07/28/18 15: 54 Freq: Q4HR Status: Inactive Protocol: Created 07/28/18 15:54 System (Rec: 07/28/18 15:54 System ICU-C14) Document 07/28/18 17:00 QOT0532 (Rec: 07/28/18 17:35 ASU3790 ICU-C15) Document 07/28/18 18:00 KWK1373 (Rec: 07/28/18 18:06 PHZ3792 ICU-C15) Document 07/28/18 19:00 DUV1526 (Rec: 07/28/18 21:45 UUF4829 ICU-C15) Document 07/28/18 20:00 CLP5819 (Rec: 07/28/18 21:46 ZSE4515 ICU-C15) Document 07/28/18 22:00 OGZ8661 (Rec: 07/28/18 22:39 GLT8138 ICU-C15) Document 07/29/18 04:00 QIH6677 (Rec: 07/29/18 04:15 QHG7630 ICU-C15) Document 07/29/18 07:00 KFA6449 (Rec: 07/29/18 07:16 KLB3460 ICU-C25) Document 07/29/18 08:00 UMT4045 (Rec: 07/29/18 09:06 PPN5124 ICU-C25) Document 07/29/18 09:00 HEN0907 (Rec: 07/29/18 09:41 NWA6929 ICU-C25) Document 07/29/18 10:00 HGC1705 (Rec: 07/29/18 10:34 KJG4551 ICU-C25) Document 07/29/18 11:00 OKP2502 (Rec: 07/29/18 11:42 WQW0230 ICU-C25) Document 07/29/18 11:42 CWI2068 (Rec: 07/29/18 11:42 AZV5965 ICU-C25) Document 07/29/18 12:00 MGT8362 (Rec: 07/29/18 13:01 JLS1978 ICU-C25) Document 07/29/18 13:00 GML7444 (Rec: 07/29/18 13:05 OZI9147 ICU-C25) Document 07/29/18 14:00 SFA0819 (Rec: 07/29/18 14:09 LVO0568 ICU-C25) Document 07/29/18 15:00 VNC7229 (Rec: 07/29/18 15:22 UPI1094 ICU-C25) Document 07/29/18 15:42 NBV7504 (Rec: 07/29/18 15:42 HBB4322 ICU-C25) Document 07/29/18 15:42 TIV0025 (Rec: 07/29/18 15:42 UYQ7452 ICU-C25) Document 07/29/18 17:00 EAC2305 (Rec: 07/29/18 17:21 IBQ9174 ICU-C25) Document 07/29/18 18:00 ZOX6564 (Rec: 07/29/18 18:23 HTT7399 ICU-C25) Document 07/29/18 19:00 XZJ7855 (Rec: 07/29/18 19:34 RDU8734 ICU-C10) Document 07/29/18 19:40 GFC4008 (Rec: 07/29/18 19:50 FOC3335 ICU-C10) Document 07/29/18 23:00 FBF0156 (Rec: 07/29/18 23:27 RWZ9641 ICU-C10) Document 07/30/18 00:00 MFI1444 (Rec: 07/30/18 01:00 CYQ3320 ICU-C10) Document 07/30/18 03:00 DHM5402 (Rec: 07/30/18 03:08 GLP3092 ICU-C10) Document 07/30/18 04:00 MBF2250 (Rec: 07/30/18 04:39 HPP7504 ICU-C10) Document 07/30/18 11:28 VDP4811 (Rec: 07/30/18 11:28 IMJ8602 ICU-M33) Document 07/30/18 16:00 IRW4485 (Rec: 07/30/18 18:21 EJW7287 ICU-C16) Document 07/30/18 20:30 GVV1981 (Rec: 07/30/18 22:25 UIM2486 ICU-C16) Document 07/31/18 00:00 XSB2911 (Rec: 07/31/18 00:26 GAK5215 ICU-C16) Document 07/31/18 11:00 EHL9296 (Rec: 07/31/18 12:50 SAF6446 ICU-C15) Intake and Output Start: 07/31/18 14: 33 Freq: DAILY@0600,1400,2200 Status: Active Protocol: Created 07/31/18 14:33 OUO3076 (Rec: 07/31/18 14:33 IGC2956 ICU-C15) Document 07/31/18 22:00 HQD3009 (Rec: 07/31/18 22:24 NCF3726 MED-C09) Document 08/01/18 05:20 EPM4765 (Rec: 08/01/18 05:21 TIO6168 MED-C11) Document 08/01/18 14:00 YSC0791 (Rec: 08/01/18 18:44 GQZ1704 MED-C09) Document 08/01/18 22:00 WFX2391 (Rec: 08/02/18 02:04 ZLE9626 MED-C09) Document 08/02/18 04:11 QEN1912 (Rec: 08/02/18 04:12 VMF4870 MED-C09) Head: Normal Eyes: No Scleral Icterus Ears/Nose/Mouth/Throat: NL Teeth, Lips, Gums, Clear Oropharnyx Neck: NL Appearance and Movements; NL JVP Cardiovascular: NL Sounds; No Murmurs; No JVD, RRR Respiratory: Symmetrical Chest Expansion and Respiratory Effort - difficult to hear Abdominal: - - obese abdomen with +bs Neurological: Alert and Oriented x 3 - Assessment Assessment: 63 yo female with metastatic adenocarcinoma with unknown primary, L pleural effusion, ascites, acute renal failure and resolving sepsis - Plan Consult Plan (MU): Hospice Plan: Patient's primary concern is her back pain she can not get comfortable. She just wants to go home. At this time she is interested in hospice and doesn't want to come back to the hospital. A referral has been made to [facility] since she lives in [facility] by case management and I left a message with Dr. Lopes to send an order. She was not in the office today. was not current for the discussion. Oncology also saw patient and they are interested in continuing work up to find a primary and suggest chemotherapy. Pt is in too much pain to make definitive decisions but I think would benefit from hospice. She needs some help knowing her options and getting some pain relief from her back and shoulder issues. If she decides to proceed with palliative chemo and leave hospice she would be a candidate for Advanced Illness Management(AIM) program through [facility] or a similar program if that is not available. Completed a new [facility]OL[facility] form which she is opting for comfort care at this point but I told patient she can change her mind at any time regarding the MOLST form and Hospice. A copy of the MOLST form was given to the patient and contact information for the Hospice center. - Time On Unit Date of Evaluation: 08/02/18 Hospice Consult Time in: 10:45 Hospice Consult Time Out: 11:45 Hospice Consult Time Total: 60 > 50% of Time Spend In Counseling or Coordinating Care: Yes
--- NOTE | 2018-08-02 12:29 | PN ---
Progress Note - Progress Note Date of Service: 08/02/18 SOAP: Subjective: []Immediately upon entering the room tells me she is going home today. CT of chest yesterday with fluid to left lung and associated consolidation, admits to feeling winded with minimal movement. Denies further questions to this proposal writer. Medications: Docusate Sodium (Colace Cap*) 100 mg PO BID PRN PRN Reason: CONSTIPATION Heparin Sodium (Porcine) (Heparin Flush Picc/Ml/Cvc(*)) 1 - 3 ml FLUSH 0600, 1800 [facility]; Protocol Last Admin: 08/02/18 05:36 Dose: 3 ml Heparin Sodium (Porcine) (Heparin Vial(*)) 5,000 units SUBCUT Q12H [facility] Last Admin: 08/02/18 09:25 Dose: 5,000 units Ceftriaxone Sodium 1 gm/ (Sodium Chloride) 50 mls @ 200 mls/hr IVPB Q24H [facility] Stop: 08/05/18 13:59 Last Admin: 08/01/18 14:27 Dose: 200 mls/hr Magnesium Hydroxide (Milk Of Magnseveriano Liq*) 30 ml PO Q6H PRN PRN Reason: INDIGESTION Last Admin: 07/31/18 12:09 Dose: 30 ml Morphine Sulfate (Morphine Vial*) 3 mg IV Q2H PRN PRN Reason: PAIN Last Admin: 08/01/18 14:58 Dose: 3 mg Nystatin (Nystatin Top Powder*) 1 applic TOPICAL TID [facility] Last Admin: 08/01/18 22:50 Dose: 1 applic Ondansetron HCl (Zofran Inj*) 4 mg IV Q6H PRN PRN Reason: NAUSEA Last Admin: 07/31/18 00:57 Dose: 4 mg Oxycodone/Acetaminophen (Percocet 5/325 Tab*) 1 tab PO Q4H PRN PRN Reason: PAIN Last Admin: 08/01/18 16:46 Dose: 1 tab Senna (Senokot Tab*) 1 tab PO BEDTIME PRN PRN Reason: CONSTIPATION Objective: [] Vital Signs Temp Pulse Resp BP Pulse Ox 98.3 F 96 20 143/73 92 08/02/18 02:58 08/02/18 02:58 08/02/18 02:58 08/02/18 02:58 08/02/18 02:58 A&Ox3, notably frustrated HRR, distant heart sounds LS dim. bilat. Obese Laboratory Results - last 24 hr 08/02/18 08/02/18 05:45 05:45 WBC 11.6 H RBC 4.11 Hgb 11.1 L Hct 35 MCV 84 MCH 27 MCHC 32 RDW 17 H Plt Count 329 MPV 8.1 Sodium 136 Potassium 4.6 Chloride 102 Carbon Dioxide 24 Anion Gap 10 BUN 59 H Creatinine 1.83 H Est GFR ( Amer) 34.0 Est GFR (Non-Af Amer) 28.1 BUN/Creatinine Ratio 32.2 H Glucose 107 H Calcium 9.0 Phosphorus 3.6 Magnesium 2.4 Total Bilirubin 0.60 AST 52 H ALT 30 Alkaline Phosphatase 377 H Total Protein 6.5 Albumin 3.1 L Globulin 3.4 Albumin/Globulin Ratio 0.9 L Assessment: []63 year old with new diagnosis of adenocarcinoma, diffuse metastatic disease in abdominal cavity admitted with ARF now improved. Plan: []1. Metastatic adenocarcinoma of unknown primary: Based on pathologic studies appears to be most likely lung or upper GI primary, EGD gastric biopsy pending. CT of chest with pleural effusion of left. - consider thoracentesis with pathology and then repeat of CT chest to eval. for primary mass, however can be done as an outpatient and may hold off until preliminary gastric biopsy results - pt. met with palliative care today and currently interested in hospice consult , though I have also recommended outpatient f/u with Dr. Bansal later this week to discuss options for palliative chemotherapy - biopsy on 07/16 included pertitoneal fluid, no roll for paracentesis unless symptomatic - consider MRI of back d/t metastatic cancer, though has chronic issues with certain positions Case discussed with hospitalist attending: Dr. Harrell
[2018-08-02] MEDS: oxyCODONE/Acetamin 5/325 MG* TAB PO PRN (12:38)
[2018-08-02 14:43] VITALS: BP 105/83
--- NOTE | 2018-08-02 20:45 | PRO ---
DATE OF PROCEDURE: 07/30/18 - ROOM #422 PROCEDURE: Esophagogastroduodenoscopy. INDICATION: Unknown primary cancer. REFERRING PHYSICIAN: Dr. Lopes.* MEDICATIONS GIVEN: 50 mcg IV fentanyl, 8 mg IV Versed. DESCRIPTION OF PROCEDURE: After the EGD procedure, including the risks, benefits, and alternatives, not limited to perforation, surgery and/or were explained to the patient, written consent was then obtained. IV medication was given and a bite-block was placed between the teeth. An Olympus pediatric gastroscope was then inserted into the patient's mouth, advanced down the esophagus, into the stomach, and into the distal duodenum. In the esophagus , at the GE junction, there was a small nodule, biopsies were obtained. The scope was advanced through the GE junction. No obvious malignancies were seen into the stomach. Retroflex view was unremarkable. Forward view also was unremarkable. Biopsy for H. pylori was obtained. Scope was advanced through a widely patent pylorus, into the duodenal bulb, and into the distal duodenum, both of which were unremarkable. The scope was then withdrawn from the patient. She tolerated the procedure well and was returned to the care of the ICU staff. IMPRESSION: 1. Complete upper endoscopy into the distal duodenum with biopsy. 2. Biopsy of an esophageal nodule. 3. I will follow up on all the biopsies and report back to the patient at that time. [id number] #: [id number] MTDD
--- NOTE | 2018-08-03 07:13 | DS ---
DISCHARGE SUMMARY: DATE OF ADMISSION: 07/28/18 DATE OF DISCHARGE: 08/02/18 ADMITTING PROVIDER: Mina Porter DO (Critical Care). ATTENDING PHYSICIAN ON THE DAY OF DISCHARGE: Jamil Harrell MD PRIMARY CARE PHYSICIAN: Miri Lopes MD CONSULTING GASTROENTEROLOGISTS: Renato Boggs DO and Matti Nascimento MD CONSULTING HEARING AID SPECIALIST/ONCOLOGIST: Aria Bansal MD CHIEF COMPLAINT: Weakness and dizziness. PRINCIPAL DIAGNOSES: 1. Acute renal failure. 2. Hypotension in the setting of large left pleural effusion. 3. Metastatic adenocarcinoma of unknown primary. 4. Ascites. 5. Right ventricular volume or pressure overload. 6. Sepsis. HISTORY OF PRESENT ILLNESS/HOSPITAL COURSE: Arlin Jones is a 63-year-old female with past medical history of morbid obesity, hypertension, gout with recent diagnostic laparoscopy for 2 months of abdominal pain, anorexia, and weight loss and concern for omental caking. She had been taken to the operating room by Dr. Cohen on 07/16/18 where omental caking, liver studding, and ascites was noted. Biopsy resulted adenocarcinoma that was CK7, CA-125, and keratin and CEA positive with minimal CDX2 positivity, CTF1 negative and ER negative. There was concern for upper GI, CHILD HEALTH ASSOCIATE, or breast primary. She was being worked up as an outpatient for this but came in to the emergency room with abdominal pain and dizziness, was found to be markedly hypotensive with acute renal failure. She was given empiric antibiotics, vancomycin and Zosyn the day before urinalysis and urine cultures were obtained. Urine culture unsurprisingly did not grow anything. UA did have trace leukocyte esterase and 2+ wbc's. She was initially in the ICU for her shock of unclear etiology without ability to rule out UTI causing sepsis versus some consideration that on reflection, the risk for pulmonary embolism or other hemodynamic compromise given the ventrally found large left pleural effusion with complete lower left lung collapse. She received a few days of low-dose Levophed and was given empiric antibiotics of ceftriaxone. Dr. Bansal of Hematology/Oncology was consulted as well as Dr. Boggs. She had transvaginal ultrasound, which was an extremely limited study given her body habitus, unable to really rule out anything given poor views. Dr. Boggs proceeded to recommend an EGD, which was performed by Dr. Nascimento on 08/02/18 and a small EGD junction nodule was biopsied and was pending at the time of discharge (addendum: this has since resulted in benign squamous and columnar type mucosa with chronic inflammation, reactive foveolar hyperplasia and intestinal metaplasia. Dysplasia is absent). She had a CT of the chest on 08/01/18, which demonstrated: 1. Complete consolidation of the left lower lobe. 2. [id number] left-sided pleural effusion and trace right pleural effusion. 3. Moderate peritoneal ascites. She also received a transthoracic echocardiogram given her hypotensive shock presentation, which demonstrated ejection fraction of 55% with septal flattening of the interventricular septum consistent with right ventricular volume or pressure overload. In terms of patient's acute renal failure, her creatinine on presentation was 4.32 with a GFR of 10.4. With sepsis, fluid bolus and IV fluids, this improved, by the day of discharge was 1.83 creatinine with a GFR of 28.1. Patient had AST elevated at 21. CEA antigen elevated at 11.8. CA 19-9 antigen elevated at 324. Alk phos was 275. Her weekend prior to discharge mainly consisted of waiting for pathology results and by morning of discharge, patient made it clear that she was leaving the hospital that day one way or another given her inability to get comfortable in the bariatric bed. Of note, she has chronic low back pain that was worsened by this bed. On the day of discharge, the first day I am seeing the patient, I consulted Dr. Smith of Palliative Care to get her thoughts given the patient's overall seemingly concerned for comfort over prioritization of restating information about her cancer primarily with potential palliative chemotherapy. Dr. Smith has referred the patient to [facility] given that she lives in [facility]. Notably, the patient was also evaluated by Physical Therapy and had been requiring up to 2 persons assist on 07/30/18. I asked PT to see the patient again given the patient's stated ultimatum that she would be going home on the day of discharge 08/02/18. PT notes that patient was able to do a one stand pivot from the Rollator to the reclining chair with standby assistance, was otherwise declining of ambulation and was noted to be extremely limited mobility at this time. Patient refused to consider potential transfer to a [facility]ci facility for further rehabilitation. As of now still unknown primary source of the cancer but some concern that the large left lung might benefit from a thoracentesis to drain the large pleural effusion and possibly reveal any occult lung nodules that may be a source. CHILD HEALTH ASSOCIATE etiology also not excluded given the limited ultrasound. We also did a CT abdomen and pelvis on the day of admission and uterus and ovaries were unremarkable on that study. Patient was also recommended hematology/oncology service to follow up with Dr. Bansal on 08/06/18 for further workup. I will make note that patient given her metastatic cancer and presentation of hypotension, tachycardia, and evidence of right ventricular pressure or volume overload on echocardiogram would consider evaluation for pulmonary embolism causing some of these triad of symptoms and findings. Of note, D-dimer was not obtained nor CT angiogram. She did have troponin of 0.04 and BNP at 176. On the other hand, she did not have hypoxic respiratory failure and her blood pressure and tachycardia improved with antibiotics and pressors and not with anticoagulation to argue against pulmonary embolism as being a source. Of note, Dr. Smith redid patient's MOLST form and filled out that she wanted to be comfort care without return to the hospital. DISCHARGE MEDICATIONS: Include: 1. Albuterol 2 puffs inhaled q.4 hours p.r.n. 2. Cefdinir 300 mg p.o. b.i.d. for 3 more days (new). 3. Docusate 100 mg p.o. b.i.d. p.r.n. (new). 4. [place] 5/325 mg p.r.n. 5. Lisinopril 20/25 daily. 6. Magnesium hydroxide 30 mL p.o. q.6 hours p.r.n. 7. Metoprolol succinate 50 mg p.o. at bedtime. 8. Senna 1 tab p.o. at bedtime. 9. Ambien 5 mg p.o. q.24 hours p.r.n. FOLLOWUP: She should follow up with Aria Bansal on 08/06/18 as well as Miri Lopes, her primary care doctor within 7 days of discharge. She was referred to the [facility] for possible hospice enrollment, although she is still considering all her options. It certainly would be reasonable to defer that until final malignancy workup and potential palliative treatment options were entertained. TIME SPENT: Time spent on discharge 55 minutes. [id number]/CPS #: [id number] MTDD
== END 2018-08-02 16:00 | disposition home or self-care (01) | DRG 871 ==
LOC: ED 12:46 → ICU 15:01 → MED 07-31 16:15
PROVIDERS: ADMIT Internal Medicine; ATTEND Internal Medicine
PROC: 3E033XZ Introduction of Vasopressor into Peripheral Vein, Percutaneous Approach (ICD-10-PCS; principal; 2018-07-29)
PROC: 0DB98ZX Excision of Duodenum, Via Natural or Artificial Opening Endoscopic, Diagnostic (ICD-10-PCS; 2018-07-30)
PROC: 0DB68ZX Excision of Stomach, Via Natural or Artificial Opening Endoscopic, Diagnostic (ICD-10-PCS; 2018-07-30)
PROC: 0DB48ZX Excision of Esophagogastric Junction, Via Natural or Artificial Opening Endoscopic, Diagnostic (ICD-10-PCS; 2018-07-30)
DX: A41.9 Sepsis, unspecified organism (principal); R57.8 Other shock; N17.9 Acute kidney failure, unspecified; R18.8 Other ascites; J90 Pleural effusion, not elsewhere classified; J98.11 Atelectasis; N39.0 Urinary tract infection, site not specified; Z68.44 Body mass index [BMI] 60.0-69.9, adult; I10 Essential (primary) hypertension; K80.20 Calculus of gallbladder without cholecystitis without obstruction; M17.0 Bilateral primary osteoarthritis of knee; Z96.1 Presence of intraocular lens; H26.9 Unspecified cataract; C76.2 Malignant neoplasm of abdomen; K59.00 Constipation, unspecified; E66.01 Morbid (severe) obesity due to excess calories; M10.9 Gout, unspecified; E87.70 Fluid overload, unspecified; G89.29 Other chronic pain; M54.5 Low back pain; Z51.5 Encounter for palliative care; E86.0 Dehydration; M25.511 Pain in right shoulder; Z98.41 Cataract extraction status, right eye; Z82.49 Family history of ischemic heart disease and other diseases of the circulatory system; Z83.3 Family history of diabetes mellitus; Z87.891 Personal history of nicotine dependence; Z80.41 Family history of malignant neoplasm of ovary
CPT/HCPCS: 36415; 71045; 71250; 74176; 76830; 80048; 80053; 80076; 81003; 81015; 82105; 82378; 82533; 82570; 83605; 83735; 83880; 83935; 84100; 84300; 84439; 84443; 84484; 85025; 85027; 85610; 85730; 86140; 86301; 86850; 86900; 86901; 87040; 87077; 87086; 87641; 88305; 93005; 93306; 99156; 99157; 99223; 99232; 99233; 99285; A9270-GY; C1751; C8929; G8978-GP-CL; G8979-GP-CI; J0696; J1644; J2060; J2250; J2270; J2405; J2543; J3010; J3370; P9047